=== PATIENT | male | born 1960 | race Caucasian/White ===

== ENCOUNTER 2020-07-04 07:46 | Inpatient (IN) | payer OTHER ==
[~2020-07-04] VITALS: Ht 170.2 cm; Wt 85.9 kg
--- NOTE | 2020-07-04 07:55 | NUR ---
BIB [facility] FROM HOME, C/O BACK PAIN FROM COUGHING ,TESTED POSITIVE TO [facility]IA A WEEK AGO,O2SAT 50'S UPON ARRIVAL. VS CHECKED. PLACED ON HI FLOW O2. SEEN BY
--- NOTE | 2020-07-04 08:00 | NUR ---
iv access started blood draw done. urine collected. sent to lab
[2020-07-04] MEDS ORDERED: DEXAMETHASONE SOD PHOSPHATE 10 MG/ML VIAL IV ONE ×2 (08:30)
[2020-07-04] MEDS ORDERED: DEXAMETHASONE SOD PHOSPHATE 6 MG in IV D5W 50 ML IV ONE (08:30)
[2020-07-04] MEDS ORDERED: DEXAMETHASONE SOD PHOSPHATE 10 MG/ML VIAL ONE (08:32)
[2020-07-04 08:37] LABS: BASOPHILS % (AUTO) 0.2 % (0.0-2.0); HEMATOCRIT 45 % (39-51); HEMOGLOBIN 14.7 g/dL (13.5-17.5); LYMPHOCYTES # (AUTO) 1.2 /CMM (0.8-4.8); MEAN CORPUSCULAR HGB CONC 33 g/dl (31.0-36.0); MEAN CORPUSCULAR VOLUME 89 fL (80-96); MONOCYTES # (AUTO) 0.8 /CMM (0.1-1.30); MONOCYTES % (AUTO) 9.5 % (2.0-12.0); NEUTROPHILS # (AUTO) 6.6 /CMM (1.8-8.9); NEUTROPHILS % (AUTO) 76.3 % (43.0-81.0); PLATELET COUNT (AUTO) 296 /CMM (150-450); WHITE BLOOD COUNT (AUTO) 8.7 K/uL (4.3-11.0)
[2020-07-04 08:41] LABS: BILIRUBIN,URINE NEGATIVE (NEGATIVE); COLOR,URINE DARK YELLOW (YELLOW); LEUKOCYTE ESTERASE ,URINE NEGATIVE (NEGATIVE); NITRITE, URINE NEGATIVE (NEGATIVE); PROTEIN,URINE 30 mg/dl (NEGATIVE); UGLUCOSE NEGATIVE (NEGATIVE); UROBILINOGEN,URINE 0.2 EU/dL (0.2)
[2020-07-04 08:50] LABS: CALCIUM, SERUM 8.5 mg/dL (8.5-10.1); CARBON DIOXIDE 25 mmol/L (21-32); CHLORIDE 99 mmol/L (98-107); CREATININE 1.4 mg/dL (0.6-1.3); GLUCOSE 230 mg/dL (74-106); POTASSIUM 3.6 mmol/L (3.5-5.1); SODIUM SERUM 137 mmol/L (136-145); UREA NITROGEN, BLOOD 31 mg/dL (7-18)
[2020-07-04 08:57] LABS: ABG BASE EXCESS -0.3 mmol/L; ABG OXYGEN SATURATION 92.1 % (92.0-98.5); ABG PCO2 34.6 mmHg (35.0-45.0); ABG PH 7.444 (7.350-7.450); ABG PO2 64.7 mmHg (75.0-100.0); AaDO2 397.2 mmHg; COHb 0.6 % (0.5-1.5); MetHb 0.4 % (0.0-1.5); O2Hb 91.2 % (94.0-97.0); SITE, ABG Left Radial; VENT MODE, BG HFNC 50L 70%
[2020-07-04 09:00] LABS: D-DIMER 1.19 mg/L(FEU (0.17-0.50)
[2020-07-04 09:04] LABS: ALANINE AMINOTRANSFERASE 82 U/L (12-78); ALBUMIN 3.1 g/dL (3.4-5.0); ALKALINE PHOSPHATASE 90 U/L (46-116); ASPARTATE AMINOTRANSFERASE 84 U/L (15-37); B-TYPE NATRIURETIC PEPTIDE 377 PG/ML (0-125); BILIRUBIN,TOTAL 0.5 mg/dL (0.2-1.0)
[2020-07-04 09:06] LABS: CREATINE KINASE, TOTAL 156 U/L (39-308); FERRITIN 586 ng/mL (8-388)
--- NOTE | 2020-07-04 09:07 | NUR ---
covid and rapid influenza collected. sent to lab
[2020-07-04 09:08] LABS: C-REACTIVE PROTEIN 20.1 mg/dL (0.0-0.9)
[2020-07-04] MEDS ORDERED: CEFTRIAXONE 1GM BAG (ER ONLY) 50 ML IV ONE ×2 (09:10→09:30)
[2020-07-04] MEDS ORDERED: INSULIN REGULAR, HUMAN 100 UNIT/ML 10 ML VIAL ONE (09:10)
[2020-07-04] MEDS ORDERED: AZITHROMYCIN 500 MG in IV D5W 250 ML IV ONE (09:30)
[2020-07-04] MEDS ORDERED: INSULIN REGULAR, HUMAN 100 UNIT/ML 10 ML VIAL IV ONE (09:30)
[2020-07-04] MEDS ORDERED: BENZ200C53 PO (10:56)
[2020-07-04] MEDS ORDERED: NAPR-1009 PO (10:56)
--- NOTE | 2020-07-04 11:12 | NUR ---
bs rechecked 211
[2020-07-04 12:07] LABS: BILIRUBIN,DIRECT 0.2 mg/dL (0.0-0.2)
--- NOTE | 2020-07-04 12:15 | NUR ---
placed on hiflow o2 60L/80%.
[2020-07-04] MEDS ORDERED: HYDROCODONE/APAP 5/325MG TABLET PO PRN (15:30)
[2020-07-04] MEDS ORDERED: Z GUARD REMEDY 2 OZ OINT TP PRN (15:30)
[2020-07-04] MEDS ORDERED: MAGNESIUM HYDROXIDE 30 ML UDC PO PRN (15:30)
[2020-07-04] MEDS ORDERED: ONDANSETRON HCL/PF 4 MG/2 ML VIAL IVP PRN (15:30)
[2020-07-04] MEDS ORDERED: ZOLPIDEM TARTRATE 5 MG TABLET PO PRN (15:30)
[2020-07-04] MEDS ORDERED: ACETAMINOPHEN 325 MG TABLET PO PRN (15:30)
[2020-07-04] MEDS ORDERED: MAG HYDROX/AL HYDROX/SIMETH 30 ML UDC PO PRN (15:30)
--- NOTE | 2020-07-04 20:04 | NUR ---
ATTEMPTED TO CALL FOR REPORT, STAFF STATES THAT THE NURSE WILL CALL ME BACK IN 10 MINUTES.
--- NOTE | 2020-07-04 20:30 | NUR ---
REPORT GIVEN TO EVELYNE KUMARI FOR JAMIE.
--- NOTE | 2020-07-04 20:47 | NUR ---
PATIENT TAKEN UP TO ROOM FOR COS
[2020-07-04] MEDS ORDERED: REMDESIVIR (CHARGED) 200 MG, *LOADING DOSE 1 EA in IV NS 0.9% 210 ML IV ONE (21:00)
[2020-07-04 22:11] VITALS: BP 155/83
[2020-07-04] MEDS: DOXYCYCLINE HYCLATE (100 MG) 100 MG TABLET PO SCH (22:33)
[2020-07-04] MEDS: APIXABAN 5 MG TABLET PO SCH (22:33)
[2020-07-05] VITALS: BP 129/84
--- NOTE | 2020-07-05 02:22 | NUR ---
TELE-1/SEMI CONDUCTOR ASSEMBLER HELP PT AMBULATE TO CHAIR. COMPLAINANT OF SOB O2 SATURATION 86% JACKLYN RT AT BEDSIDE ADJUSTED HIGH-FLOW TO 60l 100% FIO2 PT SATURATION 92% AT THIS TIME WILL CONTINUE TO MONITOR.
[2020-07-05 04:00] VITALS: BP 112/77
--- NOTE | 2020-07-05 07:30 | NUR ---
TELE/RN OPENING NOTE Patient resting in bed, A&O x 4, [place] Islander speaking. No complaints of pain/discomfort at this time. Breathing even and non-labored on High flow oxygen 60 L, saturating at 98%. No cardiac distress noted, on tele monitor, reading SB 57. IV access noted on LAC #18, patent and intact, and flushing well. Sensation from all peripheral extremities intact. Side rails x2 up, bed locked to its lowest position, call light in hand. Will continue with current medical management.
[2020-07-05 07:51] LABS: BASOPHILS % (AUTO) 0.1 % (0.0-2.0); HEMATOCRIT 42 % (39-51); LYMPHOCYTES # (AUTO) 0.8 /CMM (0.8-4.8); LYMPHOCYTES % (AUTO) 8.1 % (20.0-44.0); MEAN CORPUSCULAR HGB CONC 33 g/dl (31.0-36.0); MEAN CORPUSCULAR VOLUME 89 fL (80-96); MONOCYTES # (AUTO) 0.9 /CMM (0.1-1.30); MONOCYTES % (AUTO) 8.9 % (2.0-12.0); NEUTROPHILS # (AUTO) 8.3 /CMM (1.8-8.9); NEUTROPHILS % (AUTO) 82.9 % (43.0-81.0); PLATELET COUNT (AUTO) 317 /CMM (150-450); RED BLOOD CELL COUNT(AUTO) 4.78 MIL/uL (4.5-6.0)
[2020-07-05 08:52] LABS: C-REACTIVE PROTEIN 19.9 mg/dL (0.0-0.9)
[2020-07-05] MEDS: CEFTRIAXONE 1 G in IV D5W 50 ML IV SCH (08:54)
[2020-07-05] MEDS: DOXYCYCLINE HYCLATE (100 MG) 100 MG TABLET PO SCH ×2 (08:54→21:28)
[2020-07-05] MEDS: DEXAMETHASONE SOD PHOSPHATE 4 MG/ML VIAL IV SCH (08:54)
[2020-07-05 08:56] LABS: ALBUMIN 2.6 g/dL (3.4-5.0); BILIRUBIN,TOTAL 0.4 mg/dL (0.2-1.0); CALCIUM, SERUM 8.3 mg/dL (8.5-10.1); CREATININE 1.1 mg/dL (0.6-1.3); MAGNESIUM 2.5 mg/dL (1.8-2.4); PHOSPHORUS 3.3 mg/dL (2.5-4.9); POTASSIUM 4.6 mmol/L (3.5-5.1); TOTAL PROTEIN, SERUM 7.2 g/dL (6.4-8.2)
[2020-07-05] MEDS: APIXABAN 5 MG TABLET PO SCH ×2 (08:56→21:29)
[2020-07-05 09:03] LABS: THYROID STIMULATING HORMONE 1.02 uIU/mL (0.358-3.74)
[2020-07-05 09:15] LABS: BASOPHILS % (AUTO) 0.1 % (0.0-2.0); HEMATOCRIT 42 % (39-51); HEMOGLOBIN 13.7 g/dL (13.5-17.5); LYMPHOCYTES # (AUTO) 0.7 /CMM (0.8-4.8); LYMPHOCYTES % (AUTO) 7.4 % (20.0-44.0); MEAN CORPUSCULAR HGB CONC 33 g/dl (31.0-36.0); MEAN CORPUSCULAR VOLUME 89 fL (80-96); MONOCYTES # (AUTO) 0.9 /CMM (0.1-1.30); NEUTROPHILS # (AUTO) 8.4 /CMM (1.8-8.9); NEUTROPHILS % (AUTO) 83.5 % (43.0-81.0); PLATELET COUNT (AUTO) 316 /CMM (150-450); RED BLOOD CELL COUNT(AUTO) 4.72 MIL/uL (4.5-6.0); WHITE BLOOD COUNT (AUTO) 10.1 K/uL (4.3-11.0)
[2020-07-05 12:00] VITALS: BP 124/78
--- NOTE | 2020-07-05 12:00 | NUR ---
TELE/RN NOTE Patient signed consent form for convalescent plasma, placed on the chart.
--- NOTE | 2020-07-05 14:00 | NUR ---
TELE/RN NOTE Received convalescent plasma IRB forms signed by Dr. Erwin, sent to lab by hand delivery.
[2020-07-05 16:00] VITALS: BP 121/75
[2020-07-05] MEDS: REMDESIVIR (CHARGED) 100 MG in IV NS 0.9% 230 ML IV SCH (18:18)
--- NOTE | 2020-07-05 19:00 | NUR ---
TELE/RN CLOSING NOTE Patient resting in bed, A&O x 4. All needs met and attended to. No complaints of pain/discomfort at this time. Breathing even and non-labored on High flow oxygen 60 L, saturating at 98%, no respiratory distress noted. No cardiac distress noted, on tele monitor, reading SR 62. IV access noted on LAC #18, patent and intact, and flushing well. Sensation from all peripheral extremities intact. Fall precautions maintained. Will endorse to steward/stewardess night nurse.
--- NOTE | 2020-07-05 19:30 | NUR ---
RN NOTE RECEIVED PATIENT IN BED, ON HIGH ALDRIDGE'S. PATIENT IN NO S/SX OF ACUTE DISTRESS AT THIS TIME. PATIENT'S BREATHING IS EVEN AND UNLABORED. PATIENT IS ON 60L OF OXYGEN VIA HIGH FLOW NC, TOLERATING WELL, SATURATING AT 95%. PATIENT ON TELE MONITOR READING SR, HR IS 65. NOTED IV SITE LAC 18G, PATENT AND FLUSHING WELL, NO S/S OF INFECTION OR INFILTRATION. PATIENT ON BEDREST, AMBUKLATORY WITH ASSIST, COMMODE AT BEDSIDE. SAFETY MEASURES IMPLEMENTED PER PROTOCOL. PATIENT BED ALARM IS ON. HEAD OF BED ELEVATED. BED IS LOCKED, IN LOWEST POSITION AND SIDE RAILS UP. CALL LIGHT WITHIN REACH OF THE PATIENT. WILL CONTINUE TO MONITOR AND REASSESS FOR ANY CHANGES.
[2020-07-05 20:00] VITALS: BP 132/83
[2020-07-06] VITALS: BP 142/84
[2020-07-06 04:00] VITALS: BP 142/84
--- NOTE | 2020-07-06 07:30 | NUR ---
PT RECEIVED IN BED, ON HIGH FLOW 60LPM, 100% FIO2, NO RESPIRATORY DISTRESS. PT AOX4 AND AMBULATORY. PT HAS LAC 18G SALINE LOCKED. NO SIGNS OF INFECTION OR INFILTRATION. BED IN LOCKED LOWEST POSITION, CALL LIGHT WITHIN REACH. ALL SAFETY MEASURES IN PLACE. WILL CONTINUE TO MONITOR CLOSELY
[2020-07-06 08:00] VITALS: BP 123/73
[2020-07-06 08:09] LABS: HEMATOCRIT 40 % (39-51); HEMOGLOBIN 13.2 g/dL (13.5-17.5); LYMPHOCYTES % (AUTO) 7.9 % (20.0-44.0); MEAN CORPUSCULAR HGB CONC 33 g/dl (31.0-36.0); MEAN CORPUSCULAR VOLUME 89 fL (80-96); MONOCYTES # (AUTO) 1.3 /CMM (0.1-1.30); MONOCYTES % (AUTO) 9.7 % (2.0-12.0); NEUTROPHILS # (AUTO) 10.9 /CMM (1.8-8.9); NEUTROPHILS % (AUTO) 82.4 % (43.0-81.0); PLATELET COUNT (AUTO) 259 /CMM (150-450); RED BLOOD CELL COUNT(AUTO) 4.51 MIL/uL (4.5-6.0); WHITE BLOOD COUNT (AUTO) 13.2 K/uL (4.3-11.0)
[2020-07-06 08:50] LABS: ALBUMIN 2.4 g/dL (3.4-5.0); BILIRUBIN,DIRECT 0.2 mg/dL (0.0-0.2); BILIRUBIN,TOTAL 0.4 mg/dL (0.2-1.0); CALCIUM, SERUM 8.2 mg/dL (8.5-10.1); CREATININE 1.1 mg/dL (0.6-1.3); POTASSIUM 4.8 mmol/L (3.5-5.1); TOTAL PROTEIN, SERUM 6.5 g/dL (6.4-8.2)
[2020-07-06 09:03] LABS: CREATINE KINASE, TOTAL 194 U/L (39-308); FERRITIN 333 ng/mL (8-388)
[2020-07-06] MEDS: CEFTRIAXONE 1 G in IV D5W 50 ML IV SCH (10:19)
[2020-07-06] MEDS: APIXABAN 5 MG TABLET PO SCH ×2 (10:20→21:29)
[2020-07-06] MEDS: DOXYCYCLINE HYCLATE (100 MG) 100 MG TABLET PO SCH ×2 (10:20→21:27)
[2020-07-06] MEDS: DEXAMETHASONE SOD PHOSPHATE 4 MG/ML VIAL IV SCH (11:27)
[2020-07-06 12:00] VITALS: BP 130/81
--- NOTE | 2020-07-06 15:28 | NUR ---
PT STATES HE NEEDS SOFT DIET, CURRENT MEALS ARE DIFFICULT TO EAT. LINE PAINTING MACHINE OPERATOR NOTIFIED, DIET ORDER TEXTURE EDITED TO INCLUDE SOFT DIET
[2020-07-06 16:00] VITALS: BP 137/86
[2020-07-06] MEDS: REMDESIVIR (CHARGED) 100 MG in IV NS 0.9% 230 ML IV SCH (18:41)
[2020-07-06 20:00] VITALS: BP 128/88
--- NOTE | 2020-07-06 20:05 | NUR ---
PT SITTING IN CHAIR, AND ORIENTED X 4, WITH O2 SAT >93%, ON HIGH FLOW 60L O2 AND 100% FIO2, NO RESPIRATORY DISTRESS, SR 70s, LAC 18 SL, NO INFILTRATION NOTED, BED LOCKED AND IN LOWEST POSITION, CALL LIGHT WITHIN REACH, ALL SAFETY MEASURES IN PLACE, WILL CONTINUE TO MONITOR CLOSELY.
--- NOTE | 2020-07-06 20:25 | NUR ---
PT REMAINS IN BED, ALERT AND ORIENTED X 4. PT O2 SAT 99%, ON HIGH FLOW 60L O2 AND 100% FIO2. NO RESPIRATORY DISTRESS. PT ON MONITOR SHOWING SR 60s. PT HAS LAC 18 SL. NO SIGNS OF INFECTION OR INFILTRATION. BED IN LOCKED LOWEST POSITION, CALL LIGHT WITHIN REACH, ALL SAFETY MEASURES IN PLACE. REPORT GIVEN TO MIRELLA AYALA
[2020-07-07] VITALS: BP 134/81
[2020-07-07 04:00] VITALS: BP 131/72
[2020-07-07 06:02] LABS: BASOPHILS % (AUTO) 0.1 % (0.0-2.0); HEMATOCRIT 44 % (39-51); HEMOGLOBIN 14.3 g/dL (13.5-17.5); LYMPHOCYTES # (AUTO) 1.2 /CMM (0.8-4.8); MEAN CORPUSCULAR HGB CONC 32 g/dl (31.0-36.0); MEAN CORPUSCULAR VOLUME 89 fL (80-96); MONOCYTES % (AUTO) 8.5 % (2.0-12.0); NEUTROPHILS # (AUTO) 9.4 /CMM (1.8-8.9); NEUTROPHILS % (AUTO) 81.4 % (43.0-81.0); PLATELET COUNT (AUTO) 255 /CMM (150-450); RED BLOOD CELL COUNT(AUTO) 4.98 MIL/uL (4.5-6.0); WHITE BLOOD COUNT (AUTO) 11.6 K/uL (4.3-11.0)
[2020-07-07 06:15] LABS: ALBUMIN 2.7 g/dL (3.4-5.0); BILIRUBIN,DIRECT 0.2 mg/dL (0.0-0.2); BILIRUBIN,TOTAL 0.5 mg/dL (0.2-1.0); CALCIUM, SERUM 8.5 mg/dL (8.5-10.1); CREATININE 1.4 mg/dL (0.6-1.3); TOTAL PROTEIN, SERUM 7.2 g/dL (6.4-8.2)
--- NOTE | 2020-07-07 06:57 | NUR ---
PT IN BED, FROM BED TO CHAIR SO FAR TOLERATED WELL, AND ORIENTED X 4, WITH O2 SAT >93%, THROUGHOUT THE NIGHT, ON HIGH FLOW 60L O2 AND 100% FIO2, NO RESPIRATORY DISTRESS, OR DESATURATION EPISODES, BED LOCKED AND IN LOWEST POSITION, CALL LIGHT WITHIN REACH, ALL SAFETY MEASURES IN PLACE, WILL ENDORSE CONTINUITY OF CARE TO ONCOMING NURSE.
--- NOTE | 2020-07-07 07:35 | NUR ---
PT ASLEEP IN BED. HF 60 L FIO 100%. NO SIGNS OF RESPIRATORY DISTRESS. RESPIRATIONS EVEN UNLABORED. SKIN WARM FLUSHED. SR 60S. L AC 18 G INTACT. DRESSING INTACT. NO SIGNS OF PAIN. ALL HOSPITAL POLICY SAFETY PRECAUTIONS IMPLEMENTED. RAILS UP X2, BED LOCKED LOW, HOB ELEVATED 30 DEGREES, BED ALARM ON. WILL MONITOR RESPIRATORY STATUS THROUGHOUT THE SHIFT AND REPORT TO MD NEEDED.
[2020-07-07 08:00] VITALS: BP 104/48
[2020-07-07] MEDS: CEFTRIAXONE 1 G in IV D5W 50 ML IV SCH (09:34)
[2020-07-07] MEDS: APIXABAN 5 MG TABLET PO SCH ×2 (09:34→21:23)
[2020-07-07] MEDS: DOXYCYCLINE HYCLATE (100 MG) 100 MG TABLET PO SCH ×2 (09:34→21:24)
[2020-07-07] MEDS: DEXAMETHASONE SOD PHOSPHATE 4 MG/ML VIAL IV SCH (09:34)
[2020-07-07 12:00] VITALS: BP 124/74
[2020-07-07 16:00] VITALS: BP 130/76
[2020-07-07] MEDS: REMDESIVIR (CHARGED) 100 MG in IV NS 0.9% 230 ML IV SCH (18:09)
--- NOTE | 2020-07-07 19:40 | NUR ---
PT ASLEEP IN BED W NO ACUTE CHANGES DURING SHIFT. HF NC 60 L FIO 100%. NO SIGNS OF RESPIRATORY DISTRESS. RESPIRATIONS EVEN UNLABORED. SKIN WARM FLUSHED. SR 60S. L AC 18 G INTACT. DRESSING INTACT. NO SIGNS OF PAIN. ALL HOSPITAL POLICY SAFETY PRECAUTIONS IMPLEMENTED. RAILS UP X2, BED LOCKED LOW, HOB ELEVATED 30 DEGREES, BED ALARM ON. MONITORED RESPIRATORY STATUS THROUGHOUT THE SHIFT AND REPORTED TO MD NEEDED. ORDERS CARRIED OUT AND ENDORSED TO PM RN.
[2020-07-07 20:00] VITALS: BP 123/72
[2020-07-08] VITALS: BP 127/84
[2020-07-08 04:00] VITALS: BP 122/77
[2020-07-08 06:38] LABS: BASOPHILS % (AUTO) 0.1 % (0.0-2.0); HEMATOCRIT 42 % (39-51); HEMOGLOBIN 13.6 g/dL (13.5-17.5); LYMPHOCYTES # (AUTO) 1.1 /CMM (0.8-4.8); LYMPHOCYTES % (AUTO) 10.1 % (20.0-44.0); MEAN CORPUSCULAR HGB CONC 32 g/dl (31.0-36.0); MEAN CORPUSCULAR VOLUME 88 fL (80-96); MONOCYTES % (AUTO) 8.8 % (2.0-12.0); NEUTROPHILS # (AUTO) 9.1 /CMM (1.8-8.9); PLATELET COUNT (AUTO) 229 /CMM (150-450); RED BLOOD CELL COUNT(AUTO) 4.76 MIL/uL (4.5-6.0); WHITE BLOOD COUNT (AUTO) 11.2 K/uL (4.3-11.0)
--- NOTE | 2020-07-08 06:38 | NUR ---
MARBLE SUPERVISOR NOTE PT IN BED, SLEEPING BUT EASILY AROUSABLE .BREATHING EVEN AND UNLABORED ON HIGH FLOW 60L . NO SOB OR ACUTE DISTRESS NOTED. DENIES ANY PAIN OR DISCOMFORT. IV SITE PATENT AND INTACT. ALL NEEDS RENDERED. CALL LIGHT WITHIN REACH. BED IN LOWEST POSITION. WILL ENDORSE TO AM NURSE FOR CONTINUITY OF CARE
[2020-07-08 07:05] LABS: ALBUMIN 2.5 g/dL (3.4-5.0); BILIRUBIN,DIRECT 0.2 mg/dL (0.0-0.2); BILIRUBIN,TOTAL 0.6 mg/dL (0.2-1.0); CALCIUM, SERUM 8.5 mg/dL (8.5-10.1); POTASSIUM 4.6 mmol/L (3.5-5.1); TOTAL PROTEIN, SERUM 6.6 g/dL (6.4-8.2)
[2020-07-08 07:19] LABS: CREATINE KINASE, TOTAL 75 U/L (39-308); FERRITIN 311 ng/mL (8-388)
[2020-07-08 08:00] VITALS: BP 115/78
--- NOTE | 2020-07-08 08:00 | NUR ---
rac specialist notes Patient received in chair in good stable condition. He is alert and oriented x 4. Patient is on high flow 02 at 60 Liters with Fi02 of 100%. Patient's O2 sat is 100%. Patient noted with left ac,HL intact and flushed well. Plan of care discussed with patient. Able to urinate with urine in urinal with clear yellow urine, no sediments. Patient in chair , had breakfast. Plan of care discussed with the patient. Call light with in reach. Will monitor closely.
[2020-07-08] MEDS: CEFTRIAXONE 1 G in IV D5W 50 ML IV SCH (08:54)
[2020-07-08] MEDS: DEXAMETHASONE SOD PHOSPHATE 4 MG/ML VIAL IV SCH (08:55)
[2020-07-08] MEDS: APIXABAN 5 MG TABLET PO SCH ×2 (08:55→21:00)
[2020-07-08] MEDS: DOXYCYCLINE HYCLATE (100 MG) 100 MG TABLET PO SCH ×2 (08:55→21:08)
--- NOTE | 2020-07-08 09:55 | NUR ---
music adapter notes Patient verbalized being tired while sitting in chair and was assisted back to bed and call light with in reach
--- NOTE | 2020-07-08 10:10 | NUR ---
dovetailer notes Dr Erwin at bedside and undated about patient. Ordered Fi02 at 80% instead of 100%., rt notified
[2020-07-08 12:00] VITALS: BP 109/65
--- NOTE | 2020-07-08 12:26 | NUR ---
clerk television production note on fio2 80% saturation 93% ,will monitor
--- NOTE | 2020-07-08 14:49 | NUR ---
program director cable television note resting comfortably in bed , all needs attended ,no sob noted Jeanne rn finished metal repairer at bedside updated patient condition, call light within reach
--- NOTE | 2020-07-08 15:37 | NUR ---
Ekg Technician notes Endorsed patient to Kirti KUMARI.
--- NOTE | 2020-07-08 15:39 | NUR ---
COMPUTER TRAINER NOTES RECEIVED PT FROM ALBERTINA KUMARI, PT IN BED, RESTING, NO SIGN OF PAIN OR DISTRESS, ON HIGH FLOW O2, CALL LIGHT WITHIN REACH, KEPT WARM AND COMFORTABLE.
[2020-07-08 16:00] VITALS: BP 109/67
[2020-07-08] MEDS: REMDESIVIR (CHARGED) 100 MG in IV NS 0.9% 230 ML IV SCH (18:09)
--- NOTE | 2020-07-08 18:57 | NUR ---
RN CLOSING NOTE PATIENT IS IN BED RESTING COMFORTABLY. PATIENT IS IN NO ACUTE DISTRESS. PATIENT IS ON HIGH FLOW OXYGEN AT 60L. PATIENT IS ON RUG BACKING STENCILER READING SR 60. PATIENT KEPT CLEAN, DRY AND COMFORTABLE THROUGHOUT THE SHIFT. PATIENT NEEDS WERE ADDRESSED. PATIENT BED IS LOCKED AND IN LOWEST POSITION. CALL LIGHT WITHIN REACH. ENDORSE TO THE CABLE BRAIDER NURSE FOR JAMIE.
[2020-07-08 20:00] VITALS: BP 101/65
--- NOTE | 2020-07-08 20:00 | NUR ---
SALVAGE INSPECTOR WOOD PARTS NOTE RECEIVED PT SITTING UP IN THE CHAIR. A/O X 3, SURINAM[place] SPEAKING. NO DISTRESS OR DISCOMFORT NOTED. DENIES PAIN. ON HIGH FLOW 55L FIO2 86% O2 SAT 97%. S/L IN LAC INTACT AND PATENT. ON TELE SB HR 56. ALL NEEDS ATTENDED. CALL LIGHT WITHIN REACH. VSS. CONTINUE TO MONITOR HIM.
--- NOTE | 2020-07-08 21:00 | NUR ---
BRAKE RELINER NOTE NOTED PT IS BLEEDING FROM RT NARES, PRESSURE APPLIED. ALSO RT AT BED SIDE CHECKING THE PT. ALSO ASSISTING THE PT. ELIQUIS 5MG HELD DUE TO NOSE BLEEDING.
--- NOTE | 2020-07-08 21:30 | NUR ---
RELIEF MAP MODELER NOTE BLEEDING STOPPED PT REMAIN ON HIGH FLOW 55L FIO2 86%. CONTINUE TO MONITOR HIM.
--- NOTE | 2020-07-08 22:30 | NUR ---
RX SPECIALIST NOTE NOTED PT WAS COUGHING AND C/O OF BLEEDING AGAIN FROM RT NARES, GUAZE APPLIED IN RT NARE. RT ALSO AT BED SIDE. BLEEDING STOPPED AFTER 10 MINUTES.
[2020-07-09] VITALS: BP 113/70
[2020-07-09 04:00] VITALS: BP 108/75
[2020-07-09 06:30] LABS: BASOPHILS % (AUTO) 0.2 % (0.0-2.0); HEMATOCRIT 41 % (39-51); HEMOGLOBIN 13.4 g/dL (13.5-17.5); LYMPHOCYTES # (AUTO) 0.8 /CMM (0.8-4.8); LYMPHOCYTES % (AUTO) 7.7 % (20.0-44.0); MEAN CORPUSCULAR HGB CONC 33 g/dl (31.0-36.0); MEAN CORPUSCULAR VOLUME 89 fL (80-96); MONOCYTES # (AUTO) 0.7 /CMM (0.1-1.30); MONOCYTES % (AUTO) 6.8 % (2.0-12.0); NEUTROPHILS # (AUTO) 8.9 /CMM (1.8-8.9); NEUTROPHILS % (AUTO) 85.3 % (43.0-81.0); PLATELET COUNT (AUTO) 233 /CMM (150-450); RED BLOOD CELL COUNT(AUTO) 4.62 MIL/uL (4.5-6.0); WHITE BLOOD COUNT (AUTO) 10.4 K/uL (4.3-11.0)
[2020-07-09 06:58] LABS: ALBUMIN 2.5 g/dL (3.4-5.0); BILIRUBIN,DIRECT 0.2 mg/dL (0.0-0.2); BILIRUBIN,TOTAL 0.6 mg/dL (0.2-1.0); CALCIUM, SERUM 8.3 mg/dL (8.5-10.1); CREATININE 1.3 mg/dL (0.6-1.3); POTASSIUM 5.1 mmol/L (3.5-5.1); TOTAL PROTEIN, SERUM 6.5 g/dL (6.4-8.2)
--- NOTE | 2020-07-09 07:21 | NUR ---
COMPUTER TRAINING SPECIALIST CLOSING NOTES PATIENT IN BED. SLEEPING EASILY AROUSABLE BY VERBAL STIMULI. NOT IN ANY ACUTE DISTRESS. ON HIGH FLOW OXYGEN AT 60L. DENIES SOB AT THIS TIME. DENIES PAIN. KEPT HOB ELEVATED. ON TELE MONITOR, SHOWS SINUS HUNG HR 56. NO NOSE BLEEDING NOTED AT THIS TIME. KEPT CLEAN AND COMFORTABLE IN BED. ISOLATION PRECAUTION OBSERVED FOR COVID. ALL SAFETY MEASURES IMPLEMENTED PER PROTOCOL, BED LOCKED IN LOWEST POSITION. SIDE RAILS UP X 2. CALL LIGHT WITHIN REACH. WILL ENDORSE TO NEXT SHIFT NURSE FOR JAMIE.
--- NOTE | 2020-07-09 07:29 | NUR ---
RN NOTES LAB CALLED PT HAS GLUCOSE OF [address] IF NOW GOING TO [facility]
--- NOTE | 2020-07-09 07:35 | NUR ---
RN OPENING NOTES PATIENT IN BED. SLEEPING EASILY AROUSABLE BY VERBAL STIMULI. NOT IN ANY ACUTE DISTRESS. ON HIGH FLOW OXYGEN AT 60L. DENIES SOB AT THIS TIME. DENIES PAIN. KEPT HOB ELEVATED. ON TELE MONITOR, SHOWS SINUS HUNG HR 56. NO NOSE BLEEDING AT THIS TIME. ALL SAFETY MEASURES IMPLEMENTED PER PROTOCOL, BED LOCKED IN LOWEST POSITION. SIDE RAILS UP X 2. CALL LIGHT WITHIN REACH. WILL MONITOR FOR JAMIE
--- NOTE | 2020-07-09 07:43 | NUR ---
RN NOTES BASED ON MILD SCALE GAVE HIM 10 UNIT BS IS 407
[2020-07-09 08:00] VITALS: BP 113/68
[2020-07-09] MEDS: DEXAMETHASONE SOD PHOSPHATE 4 MG/ML VIAL IV SCH (09:47)
[2020-07-09] MEDS: DOXYCYCLINE HYCLATE (100 MG) 100 MG TABLET PO SCH ×2 (09:47→21:22)
[2020-07-09] MEDS: APIXABAN 5 MG TABLET PO SCH ×2 (09:48→21:28)
[2020-07-09] MEDS: CEFTRIAXONE 1 G in IV D5W 50 ML IV SCH (10:01)
[2020-07-09 12:00] VITALS: BP 122/77
--- NOTE | 2020-07-09 14:27 | NUR ---
Received patient form Reta, will cont to monitor
--- NOTE | 2020-07-09 14:28 | NUR ---
RN NOTES REPORT GIVEN TO
[2020-07-09] MEDS ORDERED: DEXTROSE 50%-WATER 50 ML DISP.SYRIN IV PRN (15:00)
[2020-07-09 16:00] VITALS: BP 128/77
[2020-07-09] MEDS: BLOOD SUGAR DIAGNOSTIC 1 EACH STRIP VI SCH ×2 (17:13→21:58)
[2020-07-09] MEDS: INSULIN REGULAR, HUMAN 100 UNIT/ML 3 ML VIAL SQ PRN (17:36)
--- NOTE | 2020-07-09 18:30 | NUR ---
PATIENT SITTING IN CHAIR, HAVING DINNER, TOLERATING NC AND SETTINGS WELL, RESPIRATIONS EVEN AND UNLABORED, WILL CONT TO MONITOR
--- NOTE | 2020-07-09 18:56 | NUR ---
PATIENT IS STABLE, TOLERATING SETTINGS WELL, MEDICATIONS GIVEN, COMFORT NEEDS PROVIDED, SAFETY MEASURES IMPLEMENTED, WILL ENDORSE TO PM SHIFT RN
--- NOTE | 2020-07-09 19:30 | NUR ---
RN NOTES RECEIVED PATIENT IN BED, ALERT AND ORIENTED. ON HIGH FLOW O2 55L FIO2 86 %. NOT IN ANY RESPIRATORY DISTRESS. DENIES SOB NOR PAIN. PATIENT ON TELE MONITOR SHOWS SR HR 63. PATIENT WITH IV LINE ON L AC PATENT AND INTACT, FLUSHED ASEPTICALLY. ISOLATION PRECAUTION FOR COVID OBSERVED. ALL SAFETY MEASURES IMPLEMENTED PER PROTOCOL. CALL LIGHT WITHIN REACH. BED LOCKED IN LOWEST POSITION. SIDE RAILS UP.
[2020-07-09 20:00] VITALS: BP 146/82
--- NOTE | 2020-07-09 20:00 | NUR ---
insurance account manager Opening note Received pt in bed, a/o x4. Breathing even and unlabored in high flow 55L FIO2 100%. 02 saturation 97%. No sob or acute distress noted. Sinus Ruperto on groundwater monitoring technician. HR 47-59. Denies any pain or discomfort. Left AC #18 patent and intact. All needs rendered. Call light within reach. Will continue to monitor
[2020-07-09] MEDS: *INSULIN REGULAR(HUMULIN R)HUM 100 UNIT/ML VIAL SQ PRN (21:59)
[2020-07-10] VITALS (10 sets, daily range): BP systolic 101–129; BP diastolic 60–82
--- NOTE | 2020-07-10 06:41 | NUR ---
creative services manager Closing note Pt in bed, asleep but easily arousable. Breathing even and unlabored in HFNC 55L 88% fio2. o2 saturation is 92%.Sinus Ruperto 46-59HR on director cardiac. O2 saturation at 92%. Denies any pain or discomfort. Left AC 18 IV site patent and intact. All needs rendered. Kept clean and dry. Call light within reach. Will endorse to am nurse for continuity of care.
[2020-07-10 07:17] LABS: BASOPHILS % (AUTO) 0.1 % (0.0-2.0); EOSINOPHILS % (AUTO) 0.2 % (0.0-6.0); HEMATOCRIT 42 % (39-51); HEMOGLOBIN 13.7 g/dL (13.5-17.5); LYMPHOCYTES # (AUTO) 1.1 /CMM (0.8-4.8); LYMPHOCYTES % (AUTO) 8.9 % (20.0-44.0); MEAN CORPUSCULAR HGB CONC 33 g/dl (31.0-36.0); MEAN CORPUSCULAR VOLUME 88 fL (80-96); MONOCYTES # (AUTO) 0.7 /CMM (0.1-1.30); MONOCYTES % (AUTO) 6.2 % (2.0-12.0); NEUTROPHILS % (AUTO) 84.6 % (43.0-81.0); PLATELET COUNT (AUTO) 245 /CMM (150-450); RED BLOOD CELL COUNT(AUTO) 4.75 MIL/uL (4.5-6.0); WHITE BLOOD COUNT (AUTO) 11.8 K/uL (4.3-11.0)
[2020-07-10 07:18] LABS: CALCIUM, SERUM 8.6 mg/dL (8.5-10.1); CREATININE 0.9 mg/dL (0.6-1.3); MAGNESIUM 2.3 mg/dL (1.8-2.4); POTASSIUM 4.5 mmol/L (3.5-5.1)
--- NOTE | 2020-07-10 08:02 | NUR ---
WET ROOM SUPERVISOR OPEN NOTES PATIENT AWAKE CURRENTLY SITTING ON A CHAIR. A/O X 4 WITH NO SIGNS OF DISTRESS ON HIGH FLOW 55L 88% FIO2 SPO2 97%. IV L AC #18G SL. NO COMPLAIN OF PAIN AT THIS TIME. TELE MONITOR SB 47-59. SAFETY MEASURES ARE APPLIED, BED IS IN LOW POSITION SIDE RAILS UP X 2. CALL LIGHT WITHIN REACH. WILL CONTINUE TO MONITOR.
[2020-07-10] MEDS: CEFTRIAXONE 1 G in IV D5W 50 ML IV SCH (08:50)
[2020-07-10] MEDS: DEXAMETHASONE SOD PHOSPHATE 4 MG/ML VIAL IV SCH (08:51)
[2020-07-10] MEDS: DOXYCYCLINE HYCLATE (100 MG) 100 MG TABLET PO SCH ×2 (08:51→20:32)
[2020-07-10] MEDS: APIXABAN 5 MG TABLET PO SCH ×2 (08:54→20:32)
[2020-07-10] MEDS: INSULIN REGULAR, HUMAN 100 UNIT/ML 3 ML VIAL SQ PRN ×4 (08:56→21:38)
[2020-07-10] MEDS: BLOOD SUGAR DIAGNOSTIC 1 EACH STRIP VI SCH ×4 (08:56→21:41)
--- NOTE | 2020-07-10 19:51 | NUR ---
RN NOTES A/O X 4, NO SOB OR ANY RESPIRATORY DISTRESS. ON HIGH FLOW 55L 88% FIO2 SPO2 97%. WITH IV L AC #18G SL PATENT AND INTACT. DENIES ANY PAIN OR DISCOMFORT AT THIS TIME. TELE MONITOR SB 47-59. BED LOCKED AND IN LOWEST POSITION. SIDE RAILS UP X2. ALL SAFETY MEASURES IMPLEMENTED. CALL LIGHT WITHIN REACH. WILL CONTINUE TO MONITOR.
--- NOTE | 2020-07-10 20:13 | NUR ---
CHILD DAYCARE WORKER CLOSED NOTES PATIENT AWAKE CURRENTLY SITTING ON A CHAIR. A/O X 4 WITH NO SIGNS OF DISTRESS ON HIGH FLOW 55L 88% FIO2 SPO2 97%. IV L AC #18G SL. NO COMPLAIN OF PAIN AT THIS TIME. TELE MONITOR SB 47-59. PATIENT KEPT CLEAN AND DRY. ALL NEEDS, CARE, TREATMENT,AND MEDICATIONS WERE ADMINISTERED ANTICIPATED PER ORDER. SAFETY MEASURES ARE APPLIED, BED IS IN LOW POSITION SIDE RAILS UP X 2. CALL LIGHT WITHIN REACH WILL ENDORSE TO THE PSYCHIATRIC TECHNICIAN ASSISTANT NURSE.
[2020-07-10] MEDS ORDERED: GUAIFENESIN/CODEINE 10 ML UDC PO PRN (20:30)
[2020-07-10] MEDS: *INSULIN REGULAR(HUMULIN R)HUM 100 UNIT/ML VIAL SQ PRN (22:05)
[2020-07-11] VITALS (9 sets, daily range): BP systolic 101–122; BP diastolic 71–80
--- NOTE | 2020-07-11 06:40 | NUR ---
RN NOTES A/O X 4, BREATHING EVEN AND UNLABORED.. ON HIGH FLOW 55L 88% FIO2 SPO2 98%. WITH IV L AC #18G SL PATENT AND INTACT. DENIES ANY PAIN OR DISCOMFORT AT THIS TIME. TELE MONITOR SB 55. NO SIGNIFICANT CHANGES DURING SHIFT. ALL NEEDS ATTENDED PROMPTLY. BED LOCKED AND IN LOWEST POSITION. SIDE RAILS UP X2. ALL SAFETY MEASURES IMPLEMENTED. CALL LIGHT WITHIN REACH. WILL CONTINUE TO MONITOR.
--- NOTE | 2020-07-11 07:35 | NUR ---
TENSION WORKER OPEN NOTES PATIENT AWAKE CURRENTLY SITTING ON A CHAIR. A/O X 4 WITH NO SIGNS OF DISTRESS ON HIGH FLOW 55L 88% FIO2 SPO2 97%. IV L AC #18G SL. NO COMPLAIN OF PAIN AT THIS TIME. TELE MONITOR SB/SR 57. SAFETY MEASURES ARE APPLIED, BED IS IN THE LOWEST POSITION LOCKED SIDE RAILS UP X 2. CALL LIGHT WITHIN REACH WILL CONTINUE TO MONITOR.
[2020-07-11 07:51] LABS: BASOPHILS % (AUTO) 0.3 % (0.0-2.0); EOSINOPHILS % (AUTO) 0.3 % (0.0-6.0); HEMATOCRIT 45 % (39-51); HEMOGLOBIN 14.4 g/dL (13.5-17.5); LYMPHOCYTES # (AUTO) 1.3 /CMM (0.8-4.8); LYMPHOCYTES % (AUTO) 10.2 % (20.0-44.0); MEAN CORPUSCULAR HGB CONC 32 g/dl (31.0-36.0); MEAN CORPUSCULAR VOLUME 88 fL (80-96); MONOCYTES # (AUTO) 0.8 /CMM (0.1-1.30); MONOCYTES % (AUTO) 6.4 % (2.0-12.0); NEUTROPHILS # (AUTO) 10.2 /CMM (1.8-8.9); NEUTROPHILS % (AUTO) 82.8 % (43.0-81.0); PLATELET COUNT (AUTO) 271 /CMM (150-450); RED BLOOD CELL COUNT(AUTO) 5.05 MIL/uL (4.5-6.0); WHITE BLOOD COUNT (AUTO) 12.4 K/uL (4.3-11.0)
[2020-07-11] MEDS: BLOOD SUGAR DIAGNOSTIC 1 EACH STRIP VI SCH ×4 (08:09→22:50)
[2020-07-11] MEDS: DOXYCYCLINE HYCLATE (100 MG) 100 MG TABLET PO SCH (08:09)
[2020-07-11] MEDS: DEXAMETHASONE SOD PHOSPHATE 4 MG/ML VIAL IV SCH (08:10)
[2020-07-11] MEDS: APIXABAN 5 MG TABLET PO SCH ×2 (08:12→20:48)
[2020-07-11] MEDS: INSULIN REGULAR, HUMAN 100 UNIT/ML 3 ML VIAL SQ PRN ×3 (08:14→16:55)
[2020-07-11] MEDS: CEFTRIAXONE 1 G in IV D5W 50 ML IV SCH (08:16)
[2020-07-11 08:19] LABS: CALCIUM, SERUM 8.5 mg/dL (8.5-10.1); CREATININE 0.9 mg/dL (0.6-1.3); MAGNESIUM 2.3 mg/dL (1.8-2.4); PHOSPHORUS 4.2 mg/dL (2.5-4.9); POTASSIUM 4.5 mmol/L (3.5-5.1)
--- NOTE | 2020-07-11 19:29 | NUR ---
HAND FORMER CLOSED NOTES PATIENT AWAKE CURRENTLY SITTING ON A CHAIR. A/O X 4 WITH NO SIGNS OF DISTRESS ON HIGH FLOW 55L 88% FIO2 SPO2 96%. IV L AC #18G SL. NO COMPLAIN OF PAIN AT THIS TIME. TELE MONITOR SB. PATIENT KEPT CLEAN AND DRY. ALL NEEDS, CARE, TREATMENT,AND MEDICATIONS WERE ADMINISTERED ANTICIPATED PER ORDER. SAFETY MEASURES ARE APPLIED, BED IS IN LOW POSITION SIDE RAILS UP X 2. CALL LIGHT WITHIN REACH WILL ENDORSE TO THE BLACKTOP SPREADER NURSE.
--- NOTE | 2020-07-11 19:54 | NUR ---
RN NOTES A/O X 4, ABLE TO MAKE NEEDS KNOWN. BREATHING EVEN AND UNLABORED. ON HIGH FLOW 55L 88% FIO2 SPO2 97%. WITH IV L AC #18G SL PATENT AND INTACT. DENIES ANY PAIN OR DISCOMFORT AT THIS TIME. TELE MONITOR SB -50'S. BED LOCKED AND IN LOWEST POSITION. SIDE RAILS UP X2. ALL SAFETY MEASURES IMPLEMENTED. CALL LIGHT WITHIN REACH. WILL CONTINUE TO MONITOR.
[2020-07-11] MEDS: *INSULIN REGULAR(HUMULIN R)HUM 100 UNIT/ML VIAL SQ PRN (22:50)
[2020-07-12] VITALS: BP 127/77
[2020-07-12 04:00] VITALS: BP 118/74
[2020-07-12 06:15] LABS: BASOPHILS % (AUTO) 0.1 % (0.0-2.0); EOSINOPHILS % (AUTO) 0.4 % (0.0-6.0); HEMATOCRIT 42 % (39-51); HEMOGLOBIN 13.9 g/dL (13.5-17.5); LYMPHOCYTES # (AUTO) 1.3 /CMM (0.8-4.8); LYMPHOCYTES % (AUTO) 10.3 % (20.0-44.0); MEAN CORPUSCULAR HGB CONC 33 g/dl (31.0-36.0); MEAN CORPUSCULAR VOLUME 88 fL (80-96); MONOCYTES % (AUTO) 8.3 % (2.0-12.0); NEUTROPHILS % (AUTO) 80.9 % (43.0-81.0); PLATELET COUNT (AUTO) 263 /CMM (150-450); WHITE BLOOD COUNT (AUTO) 12.3 K/uL (4.3-11.0)
--- NOTE | 2020-07-12 07:40 | NUR ---
RN NOTES A/O X 4, ABLE TO MAKE NEEDS KNOWN. BREATHING EVEN AND UNLABORED. ON HIGH FLOW 55L 88% FIO2 SPO2 95%. WITH IV L AC #18G SL PATENT AND INTACT. DENIES ANY PAIN OR DISCOMFORT AT THIS TIME. TELE MONITOR SB -50'S. NO SIGNIFICANT CHANGES DURING THIS SHIFT. BED LOCKED AND IN LOWEST POSITION. SIDE RAILS UP X2. ALL SAFETY MEASURES IMPLEMENTED. CALL LIGHT WITHIN REACH. ENDORSED TO ONCOMING SHIFT.
--- NOTE | 2020-07-12 08:00 | NUR ---
RN Opening note Received patient in bed, AO x 4 able to responds all, Pt does no c/o pain or distress. Skin is warm to touch keep clean/dry intact IV site, respiratory even and unlabored with oxygen high flow at 5L. Kept locked bed with elevated HOB for aspiration precaution and ensure airway and lowest bed foe safety. Call light within reach, will continue to monitor.
[2020-07-12 08:20] LABS: CALCIUM, SERUM 8.3 mg/dL (8.5-10.1); CREATININE 0.9 mg/dL (0.6-1.3); MAGNESIUM 2.2 mg/dL (1.8-2.4); PHOSPHORUS 4.1 mg/dL (2.5-4.9); POTASSIUM 4.3 mmol/L (3.5-5.1)
[2020-07-12] MEDS: APIXABAN 5 MG TABLET PO SCH ×2 (08:20→22:14)
[2020-07-12] MEDS: DEXAMETHASONE SOD PHOSPHATE 4 MG/ML VIAL IV SCH (08:21)
[2020-07-12] MEDS: *INSULIN REGULAR(HUMULIN R)HUM 100 UNIT/ML VIAL SQ PRN ×3 (08:23→22:25)
[2020-07-12] MEDS: BLOOD SUGAR DIAGNOSTIC 1 EACH STRIP VI SCH ×4 (08:23→22:27)
[2020-07-12] MEDS: INSULIN REGULAR, HUMAN 100 UNIT/ML 3 ML VIAL SQ PRN (12:18)
[2020-07-12 16:00] VITALS: BP 116/71
--- NOTE | 2020-07-12 18:00 | NUR ---
RN Closing note Patient in bed finished meal, does no appears pain or discomfort. Respiratory even an d unlabored with igh flow oxygen at 5L and O2sat 95%. Skin is warm to toud keep clean/dry, intact IV site. Kept locked bed with elevated HOB for ensure airway and aspiration precaution and lowest bed for safety. Call, light within reach will endorse assistant casino shift manager.
--- NOTE | 2020-07-12 19:40 | NUR ---
CLINICAL SPECIALIST OPEN NOTES PATIENT AWAKE CURRENTLY SITTING ON A CHAIR. A/O X 4 WITH NO SIGNS OF DISTRESS ON HIGH FLOW 55L 88% FIO2 SPO2 97%. IV L AC #18G SL. NO COMPLAIN OF PAIN AT THIS TIME. TELE MONITOR SB/SR 57. SAFETY MEASURES ARE APPLIED,CALL LIGHT WITHIN REACH WILL CONTINUE TO MONITOR.
[2020-07-12 20:00] VITALS: BP 120/78
[2020-07-13] VITALS: BP 119/62
[2020-07-13 04:00] VITALS: BP 114/69
[2020-07-13] MEDS: BLOOD SUGAR DIAGNOSTIC 1 EACH STRIP VI SCH ×4 (07:30→22:05)
--- NOTE | 2020-07-13 07:30 | NUR ---
STRATEGIC PLANNING MANAGER OPENING NOTES PATIENT AWAKE. A/O X 4 WITH NO SIGNS OF DISTRESS ON HIGH FLOW 55L 88% FIO2 SPO2 97%. IV L AC #18G SL. NO COMPLAIN OF PAIN AT THIS TIME. TELE MONITOR SB/SR 57. KEPT SAFE AND COMFORTABLE. CALL LIGHT WITHIN REACH WILL CONTINUE TO MONITOR.
[2020-07-13 08:00] VITALS: BP 114/69
[2020-07-13 08:08] LABS: BASOPHILS % (AUTO) 0.2 % (0.0-2.0); EOSINOPHILS % (AUTO) 0.5 % (0.0-6.0); HEMATOCRIT 43 % (39-51); HEMOGLOBIN 14.1 g/dL (13.5-17.5); LYMPHOCYTES # (AUTO) 1.4 /CMM (0.8-4.8); LYMPHOCYTES % (AUTO) 12.2 % (20.0-44.0); MEAN CORPUSCULAR HGB CONC 33 g/dl (31.0-36.0); MEAN CORPUSCULAR VOLUME 88 fL (80-96); MONOCYTES % (AUTO) 8.5 % (2.0-12.0); NEUTROPHILS % (AUTO) 78.6 % (43.0-81.0); PLATELET COUNT (AUTO) 257 /CMM (150-450); RED BLOOD CELL COUNT(AUTO) 4.91 MIL/uL (4.5-6.0); WHITE BLOOD COUNT (AUTO) 11.5 K/uL (4.3-11.0)
--- NOTE | 2020-07-13 08:12 | NUR ---
PATIENT ON BED WITH NO SIGNS OF DISTRESS ON HIGH FLOW 55L 88% FIO2 SPO2 97%. IV L AC #18G SL. NO COMPLAIN OF PAIN AT THIS TIME. TELE MONITOR SB 47-59. PATIENT KEPT CLEAN AND DRY. ALL NEEDS, CARE, TREATMENT,AND MEDICATIONS WERE ADMINISTERED ANTICIPATED PER ORDER. SAFETY MEASURES ARE APPLIED, BED IS IN LOW POSITION SIDE RAILS UP X 2. CALL LIGHT WITHIN REACH WILL ENDORSE TO THE LCAC RADAR OPERATOR/NAVIGATOR NURSE.
[2020-07-13 08:26] LABS: CALCIUM, SERUM 8.2 mg/dL (8.5-10.1); CREATININE 0.8 mg/dL (0.6-1.3); MAGNESIUM 2.2 mg/dL (1.8-2.4); PHOSPHORUS 3.5 mg/dL (2.5-4.9); POTASSIUM 4.3 mmol/L (3.5-5.1)
[2020-07-13] MEDS: APIXABAN 5 MG TABLET PO SCH ×2 (08:42→21:47)
[2020-07-13] MEDS: DEXAMETHASONE SOD PHOSPHATE 4 MG/ML VIAL IV SCH (08:42)
[2020-07-13] MEDS: INSULIN REGULAR, HUMAN 100 UNIT/ML 3 ML VIAL SQ PRN (09:12)
[2020-07-13 12:00] VITALS: BP 118/62
[2020-07-13] MEDS: *INSULIN REGULAR(HUMULIN R)HUM 100 UNIT/ML VIAL SQ PRN ×3 (12:49→22:09)
[2020-07-13 16:00] VITALS: BP_SYST 111; BP_SYST 122; BP_DIAS 61
--- NOTE | 2020-07-13 18:32 | NUR ---
CASH MANAGEMENT COORDINATOR CLOSING NOTES PATIENT AWAKE CURRENTLY SITTING ON A CHAIR. A/O X 4 WITH NO SIGNS OF DISTRESS ON HIGH FLOW 55L 88% FIO2 SPO2 96%. IV L AC #18G SL. NO COMPLAIN OF PAIN AT THIS TIME. TELE MONITOR SB. PATIENT KEPT CLEAN AND DRY. ALL NEEDS, CARE, TREATMENT,AND MEDICATIONS WERE ADMINISTERED ANTICIPATED PER ORDER. SAFETY MEASURES ARE APPLIED, BED IS IN LOW POSITION SIDE RAILS UP X 2. CALL LIGHT WITHIN REACH WILL ENDORSE TO NEXT SHIFT FOR JAMIE.
[2020-07-13 20:00] VITALS: BP 114/81
--- NOTE | 2020-07-13 20:00 | NUR ---
WAREHOUSE CHECKER NOTE PT SITTING UP IN CHAIR. A/O X 4, NO DISTRESS OR DISCOMFORT NOTED. DENIES PAIN. ON TELE SR/SB 61. ON HF 55L 88% FIO2 100%. LAC #18 G SL INTACT AND PATENT. CALL LIGHT WITHIN REACH. VSS. CONTINUE TO MONITOR HIM.
[2020-07-14] VITALS: BP 120/71
[2020-07-14 04:00] VITALS: BP 127/81
--- NOTE | 2020-07-14 06:13 | NUR ---
BREAST SURGEON NOTE PT IN BED ASLEEP, AROUSABLE. NO DISTRESS OR DISCOMFORT NOTED. DENIES PAIN. REMAIN ON HF 55K 88% O2 SAT 100%, ALL NEEDS ATTENDED. ON TELE SB 55. SIDE RAILS UP X 2 AND CALL LIGHT WITHIN REACH. WILL ENDORSE TO DAY SHIFT NURSE FOR CONTINUE TO CARE.
[2020-07-14 06:19] LABS: BASOPHILS % (AUTO) 0.2 % (0.0-2.0); EOSINOPHILS % (AUTO) 0.8 % (0.0-6.0); HEMATOCRIT 42 % (39-51); HEMOGLOBIN 13.6 g/dL (13.5-17.5); LYMPHOCYTES # (AUTO) 1.9 /CMM (0.8-4.8); LYMPHOCYTES % (AUTO) 13.7 % (20.0-44.0); MEAN CORPUSCULAR HGB CONC 33 g/dl (31.0-36.0); MEAN CORPUSCULAR VOLUME 88 fL (80-96); MONOCYTES # (AUTO) 1.3 /CMM (0.1-1.30); MONOCYTES % (AUTO) 9.3 % (2.0-12.0); NEUTROPHILS # (AUTO) 10.6 /CMM (1.8-8.9); PLATELET COUNT (AUTO) 269 /CMM (150-450); RED BLOOD CELL COUNT(AUTO) 4.74 MIL/uL (4.5-6.0); WHITE BLOOD COUNT (AUTO) 13.9 K/uL (4.3-11.0)
[2020-07-14 06:49] LABS: CALCIUM, SERUM 8.1 mg/dL (8.5-10.1); CREATININE 0.8 mg/dL (0.6-1.3); MAGNESIUM 2.2 mg/dL (1.8-2.4); PHOSPHORUS 3.8 mg/dL (2.5-4.9); POTASSIUM 3.9 mmol/L (3.5-5.1)
[2020-07-14 08:00] VITALS: BP 117/69
--- NOTE | 2020-07-14 08:04 | NUR ---
TELE/RN OPENING NOTES RECEIVED PATIENT ON BED, SLEEPING EASILY AROUSABLE BY NAME AND LIGHT TOUCH. ALERT AND ORIENTED X4. PATIENT IN NO APPARENT RESPIRATORY DISTRESS NOTED. NO COMPLAINED OF PAIN AT THIS TIME. ON HIGH FLOW OXYGEN AT 55L/MIN TOLERATING WELL. TELE MONITOR READING SINUS HUNG 49 BPM. WILL CONTINUE TO MONITOR.
[2020-07-14] MEDS: BLOOD SUGAR DIAGNOSTIC 1 EACH STRIP VI SCH ×4 (08:41→21:16)
[2020-07-14] MEDS: INSULIN REGULAR, HUMAN 100 UNIT/ML 3 ML VIAL SQ PRN ×3 (08:49→17:08)
[2020-07-14] MEDS: DEXAMETHASONE SOD PHOSPHATE 4 MG/ML VIAL IV SCH (09:05)
[2020-07-14] MEDS: APIXABAN 5 MG TABLET PO SCH ×2 (09:06→21:20)
[2020-07-14 12:00] VITALS: BP 110/70
[2020-07-14 16:00] VITALS: BP 114/76
--- NOTE | 2020-07-14 18:36 | NUR ---
TELE/RN CLOSING NOTES PATIENT IS ON BED, ALERT AND ORIENTED X4. PATIENT DENIES PAIN AT THIS TIME. PATIENT IN NO APPARENT RESPIRATORY DISTRESS NOTED. PATIENT IS ON HIGH FLOW OXYGEN at 55L 88% SATURATION 100%. TELE MONITOR READING SINUS RHYTHM 71BPM. SEEN AND EXAMINED BY MD WITH ORDERS MADE AND CARRIED OUT. ALL DUE MEDICATIONS WAS GIVEN. SAFETY PRECAUTIONS WAS IN PLACED. BED IN LOWEST AND LOCKED POSITION. SIDERAILS UP X2. CALL LIGHT WITHIN REACH. WILL ENDORSED TO RHIA FOR JAMIE.
--- NOTE | 2020-07-14 19:40 | NUR ---
COOK COLD MEAT OPENING NOTES RECEIVED PATIENT RESTING IN BED COMFORTABLY; A/OX4, PATIENT ABLE TO MAKE NEEDS KNOWN; PATIENT BREATHING EVENLY AND UNLABORED; TOLERATING HF 55LPM @ 88%; NO SOB NOTED; NO APPARENT DISTRESS NOTED AT THIS TIME; TELE MONITOR SHOWS SINUS RHYTHM; L AC # 18 INTACT AND PATENT S/L; ISOLATION PRECAUTIONS MAINTAINED; SAFETY PRECAUTIONS IMPLEMENTED; WILL CONT PLAN OF CARE
[2020-07-14 20:00] VITALS: BP 137/79
[2020-07-14] MEDS: *INSULIN REGULAR(HUMULIN R)HUM 100 UNIT/ML VIAL SQ PRN (21:19)
[2020-07-15] VITALS: BP 119/75
[2020-07-15 04:00] VITALS: BP 120/75
--- NOTE | 2020-07-15 06:50 | NUR ---
LEAD GENERATION MARKETING MANAGER CLOSING NOTES PATIENT RESTING IN BED COMFORTABLY; A/OX4, PERSIAN SPEAKING; ABLE TO MAKE NEEDS KNOWN; BREATHING EVENLY AND UNLABORED; TOLERATING 55LPM VIA HIGHFLOW @ 88% FIO2, SATTING 100%; NO SOB NOTED; DENIES PAIN; NO ACUTE DISTRESS NOTED AT THIS TIME; TELE MONITOR READS SINUS HUNG 40S - SINUS RHYTHM 90S; ISOLATION PRECAUTIONS MAINTAINED; L AC #18 S/L, INTACT AND PATENT; ALL NEEDS RENDERED; SAFETY PRECAUTIONS IMPLEMENTED; WILL ENDORSE CONTINUITY OF CARE TO ONCOMING SHIFT
[2020-07-15 07:20] LABS: BASOPHILS % (AUTO) 0.2 % (0.0-2.0); EOSINOPHILS % (AUTO) 0.1 % (0.0-6.0); HEMATOCRIT 42 % (39-51); HEMOGLOBIN 13.7 g/dL (13.5-17.5); LYMPHOCYTES # (AUTO) 1.3 /CMM (0.8-4.8); LYMPHOCYTES % (AUTO) 10.2 % (20.0-44.0); MEAN CORPUSCULAR HGB CONC 33 g/dl (31.0-36.0); MEAN CORPUSCULAR VOLUME 89 fL (80-96); MONOCYTES # (AUTO) 1.1 /CMM (0.1-1.30); MONOCYTES % (AUTO) 8.4 % (2.0-12.0); NEUTROPHILS # (AUTO) 10.6 /CMM (1.8-8.9); NEUTROPHILS % (AUTO) 81.1 % (43.0-81.0); PLATELET COUNT (AUTO) 281 /CMM (150-450); RED BLOOD CELL COUNT(AUTO) 4.75 MIL/uL (4.5-6.0); WHITE BLOOD COUNT (AUTO) 13.1 K/uL (4.3-11.0)
[2020-07-15 07:45] LABS: CALCIUM, SERUM 8.4 mg/dL (8.5-10.1); CREATININE 0.9 mg/dL (0.6-1.3); MAGNESIUM 2.3 mg/dL (1.8-2.4); PHOSPHORUS 3.7 mg/dL (2.5-4.9); POTASSIUM 4.6 mmol/L (3.5-5.1)
[2020-07-15 08:00] VITALS: BP 120/73
[2020-07-15] MEDS: BLOOD SUGAR DIAGNOSTIC 1 EACH STRIP VI SCH ×4 (08:33→21:33)
--- NOTE | 2020-07-15 08:38 | NUR ---
RACE BOARD ATTENDANT OPENING NOTES PATIENT AWAKE IN BED COMFORTABLY; A/OX4, MARSHALLESE SPEAKING; ABLE TO MAKE NEEDS KNOWN; BREATHING EVENLY AND UNLABORED; TOLERATING 55LPM VIA HIGHFLOW @ 88% FIO2, SATTING 98%; NO SOB NOTED; DENIES PAIN; NO ACUTE DISTRESS NOTED AT THIS TIME. TELE MONITOR READS SINUS RHYTHM 80S; ISOLATION PRECAUTIONS MAINTAINED; L AC #18 S/L, INTACT AND PATENT; ALL NEEDS RENDERED; SAFETY PRECAUTIONS IMPLEMENTED; BED LOCKED, IN LOWEST POSITION, SIDE RAILS UPX2, CALL LIGHT WITHIN REACH.
[2020-07-15] MEDS: APIXABAN 5 MG TABLET PO SCH ×2 (09:11→20:19)
[2020-07-15] MEDS: INSULIN REGULAR, HUMAN 100 UNIT/ML 3 ML VIAL SQ PRN ×3 (09:13→17:07)
[2020-07-15] MEDS: DEXAMETHASONE SOD PHOSPHATE 4 MG/ML VIAL IV SCH (09:15)
[2020-07-15 12:00] VITALS: BP 123/81
[2020-07-15 16:00] VITALS: BP 129/84
--- NOTE | 2020-07-15 18:23 | NUR ---
HEALTH RECORDS TECHNOLOGY TEACHER CLOSING NOTES PATIENT AWAKE SITTING ON THE CHAIR COMFORTABLY; A/OX4, HAITIAN AND GUINEAN SPEAKING; ABLE TO MAKE NEEDS KNOWN. ON 55LPM VIA HIGHFLOW @ 85% FIO2,TOLERATING WELL SATTING 100%; RESPIRATIONS ARE EVEN AND UNLABORED; NO SOB NOTED. DENIES PAIN; NO ACUTE DISTRESS NOTED AT THIS TIME. TELE MONITOR READS SINUS RHYTHM AT 60'S; ISOLATION PRECAUTIONS MAINTAINED. L AC #18 S/L, INTACT AND PATENT. ALL NEEDS MET. SAFETY PRECAUTIONS IMPLEMENTED; BED LOCKED, IN LOWEST POSITION, SIDE RAILS UPX2, CALL LIGHT WITHIN REACH. WILL ENDORSE PLAN OF CARE TO SILVER BRAZER NURSE.
--- NOTE | 2020-07-15 19:15 | NUR ---
RN OPENING NOTE RECEIVED PATIENT IN BED RESTING ALERT ORIENTED X4 VERBALLY RESPONSIVE IRANIAN SPEAKER ON 55LHIGG FLOW OXYGEN ON NON REBREATHER MASK,O2:98% AMBULATORY BY ASSIST CONTINENT TO BOWEL/BLADDER IV SITE IS ON LEFT AC LEAKING,NO INTACT NO PATENT,BED IS IN LOW POSITION AND LOCKED CALL LIGHT WITHIN REACH,SAFETY MEASURE IMPALEMENT,CONTINUE TO MONITOR.
[2020-07-15 20:00] VITALS: BP 136/80
--- NOTE | 2020-07-15 20:00 | NUR ---
RN NOTE START A NEW IV LINE ON LEFT HAND #22 G NO SWELLING NO INFILTRATION,CONTINUE TO MONITOR.
[2020-07-15] MEDS: *INSULIN REGULAR(HUMULIN R)HUM 100 UNIT/ML VIAL SQ PRN (21:34)
[2020-07-16] VITALS: BP 111/63
[2020-07-16 04:00] VITALS: BP 121/75
[2020-07-16 06:28] LABS: BASOPHILS % (AUTO) 0.1 % (0.0-2.0); EOSINOPHILS % (AUTO) 0.3 % (0.0-6.0); HEMATOCRIT 41 % (39-51); HEMOGLOBIN 13.4 g/dL (13.5-17.5); LYMPHOCYTES % (AUTO) 12.7 % (20.0-44.0); MEAN CORPUSCULAR HGB CONC 33 g/dl (31.0-36.0); MEAN CORPUSCULAR VOLUME 88 fL (80-96); MONOCYTES # (AUTO) 1.3 /CMM (0.1-1.30); MONOCYTES % (AUTO) 8.7 % (2.0-12.0); NEUTROPHILS % (AUTO) 78.2 % (43.0-81.0); PLATELET COUNT (AUTO) 285 /CMM (150-450); RED BLOOD CELL COUNT(AUTO) 4.67 MIL/uL (4.5-6.0); WHITE BLOOD COUNT (AUTO) 15.4 K/uL (4.3-11.0)
--- NOTE | 2020-07-16 06:58 | NUR ---
RN NOTE PATIENT IN BED, SLEEPING. EASILY AROUSABLE BY VERBAL STIMULI. CONTINUE ON HFNC AT 55 L FIO2 88 %. PT O2SAT AT 99 %. NO RESP DISTRESS NOTED, DENIES SOB. TELE READING SINUS HUNG 51 PT BASELINE. DENIES ANY PAIN. ISOLATION PRECAUTION FOR COVID OBSERVED. ALL NEEDS ATTENDED. CALL LIGHT WITHIN REACH. BED LOCKED IN LOWEST POSITION. SIDE RAILS UP X 2. WILL ENDORSE TO NEXT SHIFT NURSE FOR JAMIE.
[2020-07-16 07:14] LABS: CALCIUM, SERUM 8.5 mg/dL (8.5-10.1); CREATININE 0.8 mg/dL (0.6-1.3); MAGNESIUM 2.2 mg/dL (1.8-2.4); PHOSPHORUS 3.8 mg/dL (2.5-4.9); POTASSIUM 4.2 mmol/L (3.5-5.1)
--- NOTE | 2020-07-16 07:20 | NUR ---
RN OPENING NOTES PT AWAKE SITTING IN CHAIR. A/O X4. TAMAZIGHT SPEAKING, UNDERSTANDS JORDANIAN. TOLERATING 55LPM VIA HIGHFLOW @ 88% FIO2, SATURATING @100%. NO SOB OR ACUTE DISTRESS NOTED AT THIS TIME. TELE MONITOR READS SINUS RHYTHM 70S. L AC #18 AND L HAND #22, BOTH INTACT, PATENT AND FLUSHED. ISOLATION PRECAUTIONS MAINTAINED. SAFETY PRECAUTIONS IMPLEMENTED. CALL LIGHT WITHIN REACH. BED LOCKED AND IN LOWEST POSITION WITH SIDE RAILS UP X2. WILL CONTINUE TO MONITOR.
[2020-07-16] MEDS: BLOOD SUGAR DIAGNOSTIC 1 EACH STRIP VI SCH ×4 (07:30→21:32)
[2020-07-16 08:00] VITALS: BP 107/71
[2020-07-16] MEDS: APIXABAN 5 MG TABLET PO SCH ×2 (09:03→21:30)
[2020-07-16] MEDS: INSULIN REGULAR, HUMAN 100 UNIT/ML 3 ML VIAL SQ PRN ×2 (09:49→18:15)
[2020-07-16 12:00] VITALS: BP 103/59
[2020-07-16 16:00] VITALS: BP 105/70
--- NOTE | 2020-07-16 19:54 | NUR ---
RN CLOSING NOTES PT AWAKE SITTING IN CHAIR. A/O X4. GIBRALTARIAN SPEAKING, UNDERSTANDS OCCITAN. TOLERATING 55LPM VIA HIGHFLOW @ 88% FIO2, SATURATING @100%. NO SOB OR ACUTE DISTRESS NOTED AT THIS TIME. TELE MONITOR READS SINUS RHYTHM 70S. L AC #18 AND L HAND #22, BOTH INTACT, PATENT AND FLUSHED. ISOLATION PRECAUTIONS MAINTAINED. SAFETY PRECAUTIONS IMPLEMENTED. CALL LIGHT WITHIN REACH. BED LOCKED AND IN LOWEST POSITION WITH SIDE RAILS UP X2. WILL ENDORSE TO NIGHT NURSE FOR JAMIE.
[2020-07-16 20:00] VITALS: BP 109/76
--- NOTE | 2020-07-16 20:00 | NUR ---
RN OPENING NOTES RECEIVED PT IN BED. ALERT AND ORIENTED X 4. BREATHING EVEN AND UNLABORED. ON O2 VIA HFNC AT 55L FIO2 88 %, TOLERATING. DENIES SOB. TELE READING SINUS HUNG HR 57. IV ON LH AND LAC BOTH PATENT AND INTACT. FLUSHED ASEPTICALLY. NO SIGNS OF INFECTION. ALL SAFETY MEASURES IMPLEMENTED PER PROTOCOL. CALL LIGHT WITHIN REACH. BED LOCKED IN LOWEST POSITION. SIDE RAILS UP X 2.
[2020-07-16] MEDS: *INSULIN REGULAR(HUMULIN R)HUM 100 UNIT/ML VIAL SQ PRN (21:36)
[2020-07-17] VITALS: BP 101/62
--- NOTE | 2020-07-17 00:50 | NUR ---
RN NOTE PATIENT COMPLAINED OF HEART BURN. 01/01 PAIN. MAALOX 30 ML GIVEN ORDERED. WILL CONTINUE TO MONITOR. VS STABLE.
--- NOTE | 2020-07-17 01:20 | NUR ---
RN NOTE PT'S PAIN RELIEVED. PER PT HE FEELS BETTER. WILL CONTINUE TO MONITOR.
[2020-07-17 04:00] VITALS: BP 100/64
[2020-07-17 06:16] LABS: CALCIUM, SERUM 8.3 mg/dL (8.5-10.1); CREATININE 0.9 mg/dL (0.6-1.3); MAGNESIUM 2.3 mg/dL (1.8-2.4); PHOSPHORUS 4.6 mg/dL (2.5-4.9); POTASSIUM 3.8 mmol/L (3.5-5.1)
[2020-07-17 06:28] LABS: BASOPHILS % (AUTO) 0.1 % (0.0-2.0); EOSINOPHILS % (AUTO) 1.1 % (0.0-6.0); HEMATOCRIT 40 % (39-51); HEMOGLOBIN 13.2 g/dL (13.5-17.5); LYMPHOCYTES # (AUTO) 2.7 /CMM (0.8-4.8); LYMPHOCYTES % (AUTO) 20.9 % (20.0-44.0); MEAN CORPUSCULAR HGB CONC 33 g/dl (31.0-36.0); MEAN CORPUSCULAR VOLUME 89 fL (80-96); MONOCYTES # (AUTO) 1.4 /CMM (0.1-1.30); MONOCYTES % (AUTO) 11.2 % (2.0-12.0); NEUTROPHILS # (AUTO) 8.6 /CMM (1.8-8.9); NEUTROPHILS % (AUTO) 66.7 % (43.0-81.0); PLATELET COUNT (AUTO) 273 /CMM (150-450); RED BLOOD CELL COUNT(AUTO) 4.56 MIL/uL (4.5-6.0); WHITE BLOOD COUNT (AUTO) 12.9 K/uL (4.3-11.0)
--- NOTE | 2020-07-17 06:44 | NUR ---
RN NOTES PATIENT ALERT AND ORIENTED X 4. BREATHING EVEN AND UNLABORED. ON O2 VIA HFNC AT 55L FIO2 88 %, TOLERATING WELL. NO SOB OR ANY RESPIRATORY DISTRESS. TELE READING SINUS HUNG HR 60. IV ON LH AND LAC BOTH PATENT AND INTACT. FLUSHED ASEPTICALLY. NO SIGNS OF INFECTION. ISOLATION PRECAUTIONS IN PLACE. BED LOCKED AND IN LOWEST POSITION. SIDE RAILS UP X2. ALL SAFETY MEASURES IMPLEMENTED PER PROTOCOL. CALL LIGHT WITHIN REACH. WILL ENDORSE TO ONCOMING SHIFT.
[2020-07-17] MEDS: BLOOD SUGAR DIAGNOSTIC 1 EACH STRIP VI SCH ×4 (07:26→21:08)
--- NOTE | 2020-07-17 07:34 | NUR ---
OPEN HEARTH STOCKYARD SUPERVISOR NOTES PATIENT RECEIVED IN BED, ALERT AND ORIENTED, MAINLY FAROESE SPEAKING. ON HIGH FLOW, 55, TOLERATING SETTING WELL WITH NO SOB AT THIS TIME, NO RESPIRATORY DISTRESS. ON REGISTERED CLINICAL DIETITIAN, SINUS RHYTHM, 75. IV ACCESS INTACT AND PATENT. PATIENT PRESENTING WITH NO PAIN OR DISCOMFORT AT THIS TIME. SAFETY PRECAUTIONS IMPLEMENTED WITH BED LOCKED, BILATERAL SIDE RAILS UP, BED ALARM ON, BED IN THE LOWEST POSITION AND CALL LIGHT WITHIN EASY REACH. WILL CONTINUE TO MONITOR.
[2020-07-17 08:00] VITALS: BP 105/61
[2020-07-17] MEDS: APIXABAN 5 MG TABLET PO SCH ×2 (08:36→21:08)
[2020-07-17 12:00] VITALS: BP 95/57
[2020-07-17] MEDS: INSULIN REGULAR, HUMAN 100 UNIT/ML 3 ML VIAL SQ PRN ×2 (12:32→17:27)
[2020-07-17 16:00] VITALS: BP 118/73
--- NOTE | 2020-07-17 18:47 | NUR ---
ATTENUATOR NOTES PATIENT IN BED, ALERT AND ORIENTED, MAINLY NORWEGIAN SPEAKING. ON HIGH FLOW NASAL CANNULA, 55, TOLERATING SETTING WELL WITH NO SOB AT THIS TIME, NO RESPIRATORY DISTRESS AT THIS TIME. ON DRYWALL APPLICATION SUPERVISOR, SINUS RHYTHM, 76. IV ACCESS INTACT AND PATENT. PATIENT SKIN KEPT CLEAN, WARM AND DRY. MET ALL OF PATIENT'S NEEDS. PATIENT PRESENTING WITH NO PAIN OR DISCOMFORT AT THIS TIME. SAFETY PRECAUTIONS IMPLEMENTED WITH BED LOCKED, BILATERAL SIDE RAILS UP, BED ALARM ON, BED IN THE LOWEST POSITION AND CALL LIGHT WITHIN EASY REACH. WILL ENDORSE PLAN OF CARE TO UPCOMING RN.
--- NOTE | 2020-07-17 19:40 | NUR ---
SENIOR STATISTICIAN OPENING NOTES RECEIVED PATIENT IN BED, ALERT AND ORIENTED X 4. VERBALLY RESPONSIVE AND ABLE TO FOLLOW DIRECTIONS. BREATHING REGULAR AND UNLABORED ON HIGH FLOW OXYGEN AT 55L/MIN, LATEST SPO2 92%. LEFT AC G18 AND LEFT HAND G22 IV LINES INTACT AND PATENT, FLUSHING WELL WITH NO BLEEDING OR S/S OF INFILTRATION NOTED. ON CARDIAC MONITORING WITH NSR AT 65bpm. DENIES PAIN/DISCOMFORT AT THIS TIME. BED LOW AND LOCKED ON HIGH FOWLERS POSITION. CALL LIGHT IN REACH. ON ISOLATION FOR COVID19, PROPER HAND WASHING AND ISOLATION PRECAUTIONS OBSERVED. WILL CONTINUE TO MONITOR.
[2020-07-17 20:00] VITALS: BP 102/65
--- NOTE | 2020-07-17 20:30 | NUR ---
MEDICAL CENTER REPRESENTATIVE NOTES RT LOWERED OXYGEN LEVEL AT 35L/MIN 70% OXYGEN, TOLERATING WELL. LATEST SPO2 98%. WILL CONTINUE TO MONITOR.
[2020-07-17] MEDS: *INSULIN REGULAR(HUMULIN R)HUM 100 UNIT/ML VIAL SQ PRN (21:09)
[2020-07-18] VITALS: BP 106/70
--- NOTE | 2020-07-18 01:00 | NUR ---
PROPELLANT CHARGE ZONE ASSEMBLER NOTES RT DECREASED OXYGEN LEVEL TO 25L/MIN, TOLERATING WELL. LATEST SPO2 97%. WILL CONTINUE TO MONITOR.
[2020-07-18 04:00] VITALS: BP 117/69
--- NOTE | 2020-07-18 04:24 | NUR ---
RT pt titrated off hfnc. placed on 5lnc. saturating 97-99%. tolerating well. notified tamera miguel
--- NOTE | 2020-07-18 04:30 | NUR ---
RIVETER HAND NOTES HIGH FLOW OXYGEN DISCONTINUED BY RT, TOLERATING OXYGEN AT 5L/MIN VIA NASAL CANNULA. LATEST SPO2 97%. WILL CLOSELY MONITOR.
--- NOTE | 2020-07-18 06:45 | NUR ---
CARD CUTTER CLOSING NOTES PATIENT IN BED, ALERT AND ORIENTED X 4. AFEBRILE WITH NO S/S OF DISTRESS OBSERVED. LEFT AC G18 AND LEFT HAND G22 IV LINES PATENT AND FLUSHING WELL. MAINTAINED ON CARDIAC MONITORING WITH NSR. NO COMPLAINTS OF PAIN/DISCOMFORT REPORTED AT THIS TIME. BED LOW AND LOCKED ON PRONE POSITION. CALL LIGHT IN REACH. WILL ENDORSE TO MORNING SHIFT FOR JAMIE.
[2020-07-18 07:24] LABS: BASOPHILS % (AUTO) 0.2 % (0.0-2.0); EOSINOPHILS % (AUTO) 1.3 % (0.0-6.0); HEMATOCRIT 44 % (39-51); HEMOGLOBIN 14.2 g/dL (13.5-17.5); LYMPHOCYTES # (AUTO) 1.8 /CMM (0.8-4.8); LYMPHOCYTES % (AUTO) 15.1 % (20.0-44.0); MEAN CORPUSCULAR HGB CONC 33 g/dl (31.0-36.0); MEAN CORPUSCULAR VOLUME 89 fL (80-96); MONOCYTES # (AUTO) 1.1 /CMM (0.1-1.30); MONOCYTES % (AUTO) 8.9 % (2.0-12.0); NEUTROPHILS # (AUTO) 9.1 /CMM (1.8-8.9); NEUTROPHILS % (AUTO) 74.5 % (43.0-81.0); PLATELET COUNT (AUTO) 281 /CMM (150-450); RED BLOOD CELL COUNT(AUTO) 4.91 MIL/uL (4.5-6.0); WHITE BLOOD COUNT (AUTO) 12.2 K/uL (4.3-11.0)
[2020-07-18] MEDS: BLOOD SUGAR DIAGNOSTIC 1 EACH STRIP VI SCH ×4 (07:46→21:29)
[2020-07-18 07:51] LABS: CALCIUM, SERUM 8.6 mg/dL (8.5-10.1); CREATININE 0.9 mg/dL (0.6-1.3); MAGNESIUM 2.2 mg/dL (1.8-2.4); PHOSPHORUS 4.1 mg/dL (2.5-4.9)
--- NOTE | 2020-07-18 07:54 | NUR ---
RN Opening note Received patient in bed, AO x 4 able to responds all stimuli, Pt does no appears pain or distress. Skin is warm to touch keep clean/dry intact IV site, respiratory even and unlabored with oxygen at 5LPM. Kept locked bed with elevated HOB for aspiration precaution and ensure airway and lowest bed foe safety. Call light within reach, will continue to monitor.
[2020-07-18 08:00] VITALS: BP 111/73
[2020-07-18] MEDS: APIXABAN 5 MG TABLET PO SCH ×2 (08:25→21:08)
[2020-07-18] MEDS: INSULIN REGULAR, HUMAN 100 UNIT/ML 3 ML VIAL SQ PRN (08:27)
[2020-07-18] MEDS: *INSULIN REGULAR(HUMULIN R)HUM 100 UNIT/ML VIAL SQ PRN ×3 (11:47→21:30)
[2020-07-18 13:21] VITALS: BP 121/76
[2020-07-18 16:00] VITALS: BP 114/71
--- NOTE | 2020-07-18 17:57 | NUR ---
RN Closing note Patient in bed finished resting, does no appears pain or discomfort. Respiratory even and unlabored with oxygen at 2LPM and O2sat 98%. Skin is warm to touch keep clean/dry, intact IV site. Kept locked bed with elevated HOB for ensure airway and aspiration precaution and lowest bed for safety. Call, light within reach will endorse community specialist.
[2020-07-18 20:00] VITALS: BP 104/55
--- NOTE | 2020-07-18 22:31 | NUR ---
ALBINA KUMARI NOTES RECEIVED REPORT FROM QUOC LAI; WILL CONT PLAN OF CARE Addendum: 07/18/20 at 2232 by JOSÉ ANTONIO OWENS RN RECEIVED REPORT 1939
[2020-07-19] VITALS: BP 133/69
[2020-07-19 04:00] VITALS: BP 103/71
--- NOTE | 2020-07-19 06:49 | NUR ---
INSPECTORS AND REGULATORY OFFICERS CLOSING NOTES PATIENT RESTING IN BED COMFORTABLY; A/OX4, BREATHING EVENLY AND UNLABORED; NO SOB NOTED; NO DISTRESS NOTED; PATIENT DENIES PAIN; PATIENT TOLERATING 5LPM VIA NASAL CANULA; TELE MONITOR READS SINUS RHYTHM 73BPM; ISOLATION PRECAUTION MAINTAINED; L AC #18 AND L HAND #22 S/L INTACT AND PATENT, FLUSHING WELL; PATIENT ABLE TO MAKE NEEDS KNOWN; ALL NEEDS RENDERED; SAFETY PRECAUTIONS IMPLEMENTED; WILL ENDORSE JAMIE TO ONCOMING SHIFT
--- NOTE | 2020-07-19 07:51 | NUR ---
COIL BUILDER OPENING NOTES RECEIVED PATIENT IN BED, ASLEEP. PATIENT CURRENTLY ON O2 THERAPY AT 2 LPM VIA NASAL CANULA; BREATHING EVEN AND UNLABORED IN PRONE POSITION. TELE MONITOR WITH A CURRENT READING OF SINUS RHYTHM 65 BPM. L HAND IV ACCESS G # 22 AND LAC G #18 PRESENT AND INTACT. NO SIGNS OF PAIN AT THIS TIME. SAFETY PRECAUTIONS IN PLACE; BED IN LOW POSITION AND LOCKED, RAILS UP X2, CALL LIGHT WITHIN REACH. WILL CONTINUE TO MONITOR PATIENT.
[2020-07-19 08:00] VITALS: BP 115/62
--- NOTE | 2020-07-19 08:00 | NUR ---
TELE/RN OPENING NOTE Received report from Clarita KUMARI. Patient resting in bed, A&O x 4. Denies any pain/discomfort at this time. Breathing even and non-labored on 2L oxygen via NC. No respiratory or cardiac distress noted. On tele monitor, reading SR 79. LAC 18g and L hand #22 g IV accesses noted, both patent and intact, and flushing well. Bed locked to its lowest position, side rails x 2 up, call light in hand. Will continue with current medical management.
--- NOTE | 2020-07-19 08:08 | NUR ---
FAST FOOD COOK NOTES PATIENT CARE TRANSFERRED TO QUOC ADDISON. REPORT GIVEN.
[2020-07-19] MEDS: BLOOD SUGAR DIAGNOSTIC 1 EACH STRIP VI SCH ×4 (08:32→21:30)
[2020-07-19] MEDS: APIXABAN 5 MG TABLET PO SCH ×2 (08:49→21:13)
[2020-07-19] MEDS: INSULIN REGULAR, HUMAN 100 UNIT/ML 3 ML VIAL SQ PRN ×3 (08:50→17:31)
[2020-07-19 12:00] VITALS: BP 117/59
[2020-07-19 16:00] VITALS: BP 117/77
--- NOTE | 2020-07-19 19:01 | NUR ---
TELE/RN CLOSING NOTE Patient resting in bed, A&O x 4. All needs met and attended to. Denies any pain/discomfort throughout shift. Breathing even and non-labored on 2L oxygen via NC, saturating at 98%. No respiratory or cardiac distress noted. On tele monitor, reading SR 78. LAC 18g and L hand #22 g IV accesses noted, both patent and intact, and flushing well. Fall precautions maintained. Will endorse to oncology nurse nurse.
--- NOTE | 2020-07-19 19:40 | NUR ---
lead data entry operator opening notes Received Pt from morning nurse. Pt is sitting in bed comfortably. Pt is alert and orientedX4. Pt speaks Norwegian and able to make needs known. Respiration on 2 L NC. No SOB. No S/S of distress noted. Tele monitor showed SR hr at 75 bpm. IV sites at LAC# 18 is clean, intact, and SL. IV sites at L hand# 22 is clean, intact, flushes well and SL. Safety precautions is maintained. Bed at low position, brakes locked, side rails upX2, urinal at the bed side and call light is within reach. Will continue to monitor.
[2020-07-19 20:00] VITALS: BP 123/71
--- NOTE | 2020-07-19 20:01 | NUR ---
rural sociologist notes Pt is able to ambulate in the room two times without oxygen. O2 sat is 97-99% in room air. Pt tolerated activity well. No SOB. No S/S of distress noted. Will continue to monitor.
[2020-07-19] MEDS: *INSULIN REGULAR(HUMULIN R)HUM 100 UNIT/ML VIAL SQ PRN (21:52)
[2020-07-20] VITALS: BP 102/66
[2020-07-20 04:00] VITALS: BP 109/64
[2020-07-20 06:17] LABS: BASOPHILS % (AUTO) 0.4 % (0.0-2.0); EOSINOPHILS % (AUTO) 2.3 % (0.0-6.0); HEMATOCRIT 41 % (39-51); HEMOGLOBIN 13.4 g/dL (13.5-17.5); LYMPHOCYTES # (AUTO) 1.8 /CMM (0.8-4.8); LYMPHOCYTES % (AUTO) 19.4 % (20.0-44.0); MEAN CORPUSCULAR HGB CONC 33 g/dl (31.0-36.0); MEAN CORPUSCULAR VOLUME 90 fL (80-96); MONOCYTES # (AUTO) 0.9 /CMM (0.1-1.30); MONOCYTES % (AUTO) 9.6 % (2.0-12.0); NEUTROPHILS # (AUTO) 6.4 /CMM (1.8-8.9); NEUTROPHILS % (AUTO) 68.3 % (43.0-81.0); PLATELET COUNT (AUTO) 244 /CMM (150-450); WHITE BLOOD COUNT (AUTO) 9.3 K/uL (4.3-11.0)
[2020-07-20 06:32] LABS: CALCIUM, SERUM 8.9 mg/dL (8.5-10.1); CREATININE 0.8 mg/dL (0.6-1.3); MAGNESIUM 2.2 mg/dL (1.8-2.4); PHOSPHORUS 3.4 mg/dL (2.5-4.9); POTASSIUM 3.6 mmol/L (3.5-5.1)
--- NOTE | 2020-07-20 06:46 | NUR ---
board certified family physician closing notes Pt is resting in bed comfortably. Pt is alert and orientedX4. Pt speaks Divehi and able to make needs known. Respiration on 2 L NC. No SOB. No S/S of distress noted. Tele monitor showed SR hr at 64 bpm. IV sites at LAC# 18 is clean, intact, and SL. IV sites at L hand# 22 is clean, intact, flushes well and SL. Kept Pt clean, dry and comfortable. All needs met and attended. Safety precautions is maintained. Bed at low position, brakes locked, side rails upX2, urinal at the bed side and call light is within reach. Will endorse to morning nurse for JAMIE.
[2020-07-20] MEDS: BLOOD SUGAR DIAGNOSTIC 1 EACH STRIP VI SCH ×4 (07:30→22:20)
--- NOTE | 2020-07-20 07:35 | NUR ---
manager critical care unit opening notes Patient is sleeping in bed, able to be awakened. Alert and oriented X4, [place]-speaking, understands some Lithuanian and able to make needs known. Breathing even and unlabored, on 2L O2 via nc, no SOB noted. On tele monitoring, reading of SR, hr mid 60's. IV line on LAC #18 and L hand #22 intact and patent. Safety precautions in place: Bed at lowest position, side rails up X2, call light is within reach. Will continue to monitor.
[2020-07-20 08:00] VITALS: BP 120/68
[2020-07-20] MEDS: APIXABAN 5 MG TABLET PO SCH ×2 (09:23→20:31)
[2020-07-20 12:00] VITALS: BP 122/80
[2020-07-20] MEDS: INSULIN REGULAR, HUMAN 100 UNIT/ML 3 ML VIAL SQ PRN ×2 (12:11→17:15)
[2020-07-20 16:00] VITALS: BP 108/77
--- NOTE | 2020-07-20 18:40 | NUR ---
depot manager closing notes Patient is in bed, awake and verbally responsive. Alert and oriented X4, Tajik-speaking, able to make needs known. Breathing even and unlabored, on 2L O2 via nc, no SOB noted. On tele monitoring, reading of SR, hr mid 60's. IV line on L hand #22 intact and patent. Due meds given during the shift. Able to ambulate short distance w/in room w/o episode of desaturation. Safety precautions maintained: Bed at lowest position, side rails up X2, call light is within reach. Will endorse to glass block installer rn for liana.
[2020-07-20 20:00] VITALS: BP 100/49
--- NOTE | 2020-07-20 20:00 | NUR ---
RN NOTES RECEIVED PT IN BED ALERT AND ORIENTED X 4, VERBALLY RESPONSIVE. ON O2 VIA NC AT 2LPM. NO RESP DISTRESS NOTED. DENIES ANY SOB. TELE MONITOR SHOWS SINUS RHYTHM AT 63. DENIES PAIN. IV ON LH PATENT AND INTACT, FLUSHED ASEPTICALLY. ALL SAFETY MEASURES IMPLEMENTED PER PROTOCOL. CALL LIGHT WITHIN REACH. BED LOCKED IN LOWEST POSITION. SIDE RAILS UP X 2.
[2020-07-20] MEDS: *INSULIN REGULAR(HUMULIN R)HUM 100 UNIT/ML VIAL SQ PRN (22:25)
[2020-07-21] VITALS: BP 105/62
[2020-07-21 04:00] VITALS: BP 92/54
[2020-07-21 06:05] LABS: CALCIUM, SERUM 8.6 mg/dL (8.5-10.1); CREATININE 0.8 mg/dL (0.6-1.3); PHOSPHORUS 3.7 mg/dL (2.5-4.9); POTASSIUM 3.9 mmol/L (3.5-5.1)
[2020-07-21 06:08] LABS: BASOPHILS % (AUTO) 0.5 % (0.0-2.0); EOSINOPHILS % (AUTO) 2.6 % (0.0-6.0); HEMATOCRIT 37 % (39-51); HEMOGLOBIN 12.3 g/dL (13.5-17.5); LYMPHOCYTES # (AUTO) 1.9 /CMM (0.8-4.8); LYMPHOCYTES % (AUTO) 20.2 % (20.0-44.0); MEAN CORPUSCULAR HGB CONC 33 g/dl (31.0-36.0); MEAN CORPUSCULAR VOLUME 89 fL (80-96); MONOCYTES # (AUTO) 1.1 /CMM (0.1-1.30); MONOCYTES % (AUTO) 11.3 % (2.0-12.0); NEUTROPHILS # (AUTO) 6.2 /CMM (1.8-8.9); NEUTROPHILS % (AUTO) 65.4 % (43.0-81.0); PLATELET COUNT (AUTO) 217 /CMM (150-450); WHITE BLOOD COUNT (AUTO) 9.5 K/uL (4.3-11.0)
--- NOTE | 2020-07-21 06:52 | NUR ---
RN NOTES PATIENT IN BED SLEEPING, EASILY AROUSABLE. ABLE TO MAKE NEEDS KNOWN. NO RESP DISTRESS NOTED. O2 TOLERATING AT 2L. DENIES ANY SOB. TELE MONITOR SHOW SR HR 64. DENIES ANY PAIN. LH IV PATENT AND INTACT. NO S/SX OF HYPO/HYPERGLYCEMIA. ALL NEEDS ATTENDED. ALL SAFETY MEASURES WERE IMPLEMENTED PER PROTOCOL. SIDE RAILS UP X2, BED LOCKED IN LOWEST POSITION. CALL LIGHT WITHIN REACH.
[2020-07-21] MEDS: BLOOD SUGAR DIAGNOSTIC 1 EACH STRIP VI SCH ×2 (07:57→12:26)
[2020-07-21 08:00] VITALS: BP 122/71
[2020-07-21] MEDS: *INSULIN REGULAR(HUMULIN R)HUM 100 UNIT/ML VIAL SQ PRN ×2 (08:04→12:28)
[2020-07-21] MEDS: APIXABAN 5 MG TABLET PO SCH (08:44)
[2020-07-21 12:00] VITALS: BP 121/82
[2020-07-21 16:00] VITALS: BP 117/66
--- NOTE | 2020-07-21 16:30 | NUR ---
CERTIFIED LOW VISION THERAPISTPLANT CONTROL AIDE NOTES DISCHARGE ORDER RECEIVED FROM JEOVANNY LINN. PATIENT IN STABLE CONDITION FOR DISCHARGE HOME/SELF CARE. FAMILY / AWARE. MEDICATION, DISCHARGE INSTRUCTIONS AND PATIENT EDUCATION PROVED TO PATIENT. INSTRUCTED PATIENT ON COVID PRECAUTIONS TO FOLLOW. BELONGINGS CHECKED, SKIN CHECK DONE. SKIN INTACT NO PHOTOS TAKEN. NO FC IN PLACE. IV TO LT HAND #22 REMOVED. TELE MONITOR REMOVED AND GIVEN TO HOSPITAL CLEANING SPECIALIST. PT WAS WHEELED VIA WC BY SALES SUPPORT ENGINEER TO LOBBY WHERE WAS WAITING FOR HIM. PT LEFT VIA PRIVATE CAR IN STABLE CONDITION.
== END 2020-07-21 18:53 | disposition home or self-care (01) | DRG 871 ==
LOC: ER 08:00 → TELE1 20:17
PROVIDERS: ATTEND Nurse Practitioner Acute Care
PROC: XW033E5 Introduction of Remdesivir Anti-infective into Peripheral Vein, Percutaneous Approach, New Technology Group 5 (ICD-10-PCS; principal; 2020-07-04)
PROC: XW13325 Transfusion of Convalescent Plasma (Nonautologous) into Peripheral Vein, Percutaneous Approach, New Technology Group 5 (ICD-10-PCS; 2020-07-10)
DX: A41.89 Other specified sepsis (principal); N17.0 Acute kidney failure with tubular necrosis; J96.01 Acute respiratory failure with hypoxia; J12.89 Other viral pneumonia; U07.1 COVID-19; E87.1 Hypo-osmolality and hyponatremia; N13.9 Obstructive and reflux uropathy, unspecified; R74.01 Elevation of levels of liver transaminase levels; I12.9 Hypertensive chronic kidney disease with stage 1 through stage 4 chronic kidney disease, or unspecified chronic kidney disease; N18.9 Chronic kidney disease, unspecified; E11.22 Type 2 diabetes mellitus with diabetic chronic kidney disease; Z79.84 Long term (current) use of oral hypoglycemic drugs
CPT/HCPCS: 36415; 36600; 71045-TC; 80048-TC; 80053-TC; 80061-TC; 80076-TC; 82248-TC; 82550-TC; 82728-TC; 82803-TC; 82962-TC; 83605-TC; 83615-TC; 83690-TC; 83735-TC; 83880; 84100-TC; 84443-TC; 84484-TC; 85025-TC; 85378-TC; 85385-TC; 85610-TC; 85730-TC; 86140-TC; 86850-TC; 86900-TC; 87040-TC; 87081-TC; 87086-TC; 93307-TC; 94760-TC; 94762-TC; 94799-TC; A4216; A4217; A6403; G0378; J0456; J0696; J1100; J1815; J7050; J7060; P9017-BL; U0003

== ENCOUNTER 2020-07-22 17:47 | Emergency (ER) | payer OTHER ==
[~2020-07-22] VITALS: Ht 165.1 cm; Wt 74.8 kg
[2020-07-22 18:30] LABS: ABG BASE EXCESS 1.4 mmol/L; ABG OXYGEN SATURATION 89.4 % (92.0-98.5); ABG PCO2 37.5 mmHg (35.0-45.0); ABG PH 7.447 (7.350-7.450); ABG PO2 57.2 mmHg (75.0-100.0); AaDO2 47.6 mmHg; COHb 0.6 % (0.5-1.5); MetHb 0.5 % (0.0-1.5); O2Hb 88.4 % (94.0-97.0); SITE, ABG Right Radial; VENT MODE, BG ROOM AIR
--- NOTE | 2020-07-22 19:21 | NUR ---
CALLED [id number], RES#[id number]
--- NOTE | 2020-07-22 19:30 | NUR ---
RECIEVED REPORT FROM QUOC CORNELIUS. PER REPORT PT RESTING COMFORTABLY AND WAITING FOR A RIDE HOME FROM .
--- NOTE | 2020-07-22 20:15 | NUR ---
Patient discharged to home in stable condition. Written and verbal after care instructions given. Patient verbalizes understanding of instruction. pt ambulatory with a steady gait. IV removed. Catheter intact and site benign. Pressure and 4x4 applied to site. No bleeding noted.
[2020-07-23 02:09] VITALS: BP 128/84
== END 2020-07-22 20:15 | disposition home or self-care (01) ==
LOC: ER 17:58
DX: U07.1 COVID-19 (principal); E11.9 Type 2 diabetes mellitus without complications; I10 Essential (primary) hypertension; Z79.899 Other long term (current) drug therapy
CPT/HCPCS: 36415; 36600; 82803-TC; 82962-TC; 84484-TC